=== PATIENT | female | born 1970 | race Caucasian/White ===

== ENCOUNTER 2020-12-30 19:36 | Inpatient (IN) | payer OTHER, SELFPAY ==
[2020-12-30 19:36] VITALS: BP 117/65; PULSE 102; RESP 24; TEMP 36; O2SAT 74; BMI 46.4
[2020-12-30 19:45] VITALS: PULSE 92; RESP 28; O2SAT 83
[2020-12-30 19:50] VITALS: RESP 26; O2SAT 89
[2020-12-30 19:55] VITALS: RESP 24; O2SAT 98
[2020-12-30 20:28] VITALS: O2SAT 94
[2020-12-30 20:39] VITALS: BP 132/79; PULSE 88; RESP 29; O2SAT 95
--- NOTE | 2020-12-30 20:46 | CT_ITS ---
STUDY: CTA CHEST REASON FOR EXAM: Female, 50 years old. hypoxia. Short of breath, cough, Covid positive RADIATION DOSAGE (If Supplied By Facility): CTDIvol = ( 12.65 ) mGy, DLP = ( 460.60 ) mGycm TECHNIQUE: The examination was performed with the intravenous administration of IV 100mL Isovue-370. Post-processing of the angiographic images was performed, with multiplanar reformation and 3D reconstruction. Individualized dose optimization techniques were used for this CT. COMPARISON: Chest x-ray same date FINDINGS: Normal enhancement of the main pulmonary artery and right and left pulmonary arteries. Normal enhancement of the bilateral peripheral pulmonary arteries. There is no demonstrated pulmonary embolism. Normal thoracic aorta and visualized great vessels. There is no demonstrated aortic dissection. Normal heart and pericardium. Normal mediastinum. Normal hilar regions. Normal visualized trachea and bronchi. The lungs are well expanded. Bilateral multifocal parenchymal consolidations are noted, this is consistent with that of a viral pneumonitis, pneumonia. No pleural effusion. Normal pleura. Normal chest wall structures. Normal osseous structures. Cholelithiasis is noted with numerable peripherally calcified gallstones, the largest gallstone seen in the fundus of the gallbladder measuring approximately 2.5 cm. No ductal stone or obstruction identified. Small hiatal hernia noted. CT/CTA Chest W/WO Contrast IMPRESSION: 1. No demonstrate pulmonary embolus. 2. Bilateral pulmonary parenchymal infiltrates consistent with pneumonia in this patient who is Covid positive Electronically Signed: Loretta Potts MD at 22:56 EDT , Service support ,
--- NOTE | 2020-12-30 20:46 | ED.VIS.DYS ---
HPI History of Present Illness Chief Complaint: Shortness of Breath Narrative Narrative: 50-year-old female with no reported medical history presenting with hypoxia. She states she has been sick since December 21. She has cough, body aches, low-grade fever at home. The fever has resolved. She does not have any chest pain. She does feel dyspneic. She was diagnosed with COVID-19 on . Today her thought she looked like she was having difficulty breathing and he went down the street to get a pulse oximeter from family and states it was in the mid 70s, around 76. Patient placed on O2 by EMS. She is mentating clearly. Patient states she did initially have some diarrhea which resolved. She states she has not been vaccinated for COVID-19 because she was unsure which when she wanted to take. PFSH PFSH Medical History Non-smoker Allergy/AdvReac Type Severity Reaction Status Date / Time Penicillins [PCN] Allergy Hives Verified 12/30/20 19:40 Social History Smoking Status: Never smoker ROS ROS ED Constitutional Constitutional ED: Reports chills and fever(s) Eyes Eyes: Denies blurry vision or change in vision ENT ENT ED: Denies rhinorrhea or sore throat Cardiovascular Cardiovascular: Reports chest pain Respiratory/Chest Respiratory/Chest: Reports cough, dyspnea and dyspnea on exertion Gastrointestinal Gastrointestinal: Denies abdominal pain Genitourinary Genitourinary ED: Denies dysuria, hematuria or urinary frequency Musculoskeletal Musculoskeletal: Reports myalgias; Denies arthralgias or neck pain Integumentary Denies abscess or rash Neurologic Neurologic: Denies headache(s) or paresthesias Psychiatric Psychiatric: Denies anxiety or depression EXAM Physical Exam Const Vital Signs: 12/30/20 19:36 12/30/20 19:45 12/30/20 19:50 Temperature 96.8 F L Temperature Source Temporal Pulse Rate 102 H 92 Respiratory Rate 24 H 28 H 26 H Respiratory Effort Respiratory Depth Respiratory Pattern Blood Pressure 117/65 Blood Pressure Mean 82 Pulse Ox 74 83 89 Oxygen Delivery Method Room Air Room Air Nasal Cannula Oxygen Flow Rate (L/min) 6 12/30/20 19:55 12/30/20 20:28 Temperature Temperature Source Pulse Rate Respiratory Rate 24 H Respiratory Effort Normal Respiratory Depth Normal Respiratory Pattern Normal Blood Pressure Blood Pressure Mean Pulse Ox 98 Oxygen Delivery Method Non-Rebreather Nasal Cannula Oxygen Flow Rate (L/min) 15 14 Positive obese General Appearance ED: other Hypoxic but mentating clearly. Nutritional Appearance: obese HEENT Reports dry mucous membranes atraumatic Mouth ED: Yes dry mucous membranes Mouth: dry mucous membranes Eyes PERRL and EOMs intact bilaterally Neck no lymphadenopathy and supple Lymph Lymphatic: other Resp Resp Narrative: Bibasilar crackles Auscultation: diminished lung sounds; Negative for wheezes Cardio regular rhythm Rate: tachycardic GI non-tender and non-distended Palpation: soft Neuro oriented x3 Sensorium / Orientation: alert Psych mental status grossly normal Thought Process: normal thought process Skin Lesions: no lesions Rashes: no rashes MDM MDM MDM Narrative Medical decision making narrative: Patient presenting with hypoxia secondary to COVID-19. She not have any chest pain. She does have dyspnea. Patient states she has no medical history. EKG performed on arrival on my interpretation shows a normal sinus rhythm with right bundle branch block. There is no ST elevation or depression. Patient's lab work shows that she is leukopenic and lymphopenic. Creatinine is 1.40. There is no comparison. Electrolytes are normal. Lactic acid is negative. LFTs are normal. Patient is on 14 L currently. Given her CAESAR I did speak with the hospitalist and she wants 75 cc/h normal saline. Patient was given dexamethasone. Chest x-ray on my interpretation shows bilateral pulmonary infiltrates consistent with COVID-19 on my interpretation. Radiologist does agree. Patient had CTA of the chest which shows similar infiltrates. There are no PEs or dissection. Patient discussed with hospitalist for admission. She is admitted in stable condition. Impression: 1. Hypoxic respiratory failure 2. COVID-19 pneumonia 3. Elevated creatinine Lab Data Attestation: I reviewed the patient's lab results. Labs: Laboratory Results - last 24 hr 12/30/20 12/30/20 12/30/20 20:53 20:53 20:53 WBC 4.5 RBC 5.21 Hgb 11.6 L Hct 38.1 MCV 73.1 L MCH 22.3 L MCHC 30.4 L RDW Std Deviation 41.2 RDW Coeff of Carlos 15.7 H Plt Count 257 MPV 9.8 Immature Gran % (Auto) 0.700 Neut % (Auto) 83.4 H Lymph % (Auto) 9.3 L [place] % (Auto) 6.4 Eos % (Auto) 0.0 Baso % (Auto) 0.2 Absolute Neuts (auto) 3.8 Absolute Lymphs (auto) 0.42 L Nucleated RBC % 0 Differential Comment SCANNED Platelet Estimate ADEQUATE Anisocytosis 1+ Microcytosis 1+ Sodium 136 Potassium 3.8 Chloride 102 Carbon Dioxide 25.0 Anion Gap 9 BUN 25 H Creatinine 1.40 H Estim Creat Clear Calc 38.02 Est GFR (MDRD) Af Amer 51 L Est GFR (MDRD) Non-Af 42 L BUN/Creatinine Ratio 17.9 Glucose 109 H Lactic Acid 1.4 Calcium 8.1 L Total Bilirubin 0.40 AST 52 H ALT 30 Alkaline Phosphatase 68 Total Protein 7.5 Albumin 3.0 L Globulin 4.5 H Albumin/Globulin Ratio 0.7 L Radiography Diagnostic Testing: Radiology Impression Chest CTA 12/30/20 20:46 IMPRESSION: 1. No demonstrate pulmonary embolus. 2. Bilateral pulmonary parenchymal infiltrates consistent with pneumonia in this patient who is Covid positive Electronically Signed: Loretta Potts MD at 22:56 EDT , Service support , Chest X-Ray 12/30/20 22:20 IMPRESSION: Although lung volume is diminished which likely does contribute to some of the increased pulmonary parenchymal opacity seen, there also appear more focal bilateral patchy areas of pulmonary parenchymal infiltration consistent with pneumonia Electronically Signed: Loretta Potts MD at 22:44 EDT , Service support , Discharge Plan Triage Chief Complaint: Shortness of Breath ED Provider: Robin Mao Dx/Rx/DC Orders Primary Care Provider: Care Physician,No Primary
[2020-12-30 21:04] LABS: Absolute Lymphocyte Count 0.42 X10^3/uL (0.83-4.51); Absolute Neutrophil Count 3.8 X10^3/uL (2.0-7.7); Basophil# 0.01 X10^3/uL; Basophil% 0.2 % (0-1); Hematocrit 38.1 % (37-47); Hemoglobin 11.6 g/dL (12.0-15.0); Lymphocyte # 0.42 X10^3/ul (0.83-4.51); Lymphocyte % 9.3 % (19-41); Mean Corp Hgb Conc 30.4 g/dL (32-36); Mean Corpuscular Hgb 22.3 pg (27.0-32.0); Mean Corpuscular Volume 73.1 fL (81-99); Mean Platelet Vol. 9.8 fl (6.2-12.0); Monocyte# 0.29 X10^3/uL; Monocyte% 6.4 % (0-10); NRBC Flagged by Analyzer 0 % (0-5); Neutrophil # 3.79 X10^3/uL (2.7-7.7); Neutrophil % 83.4 % (47-70); POSITIVE DIFFERENTIAL YES; Platelet Count 257 K/mm3 (150-450); RBC Distribution Width CV 15.7 % (11.6-14.6); RBC Distribution Width SD 41.2 fl (35.1-43.9); Red Blood Count 5.21 M/mm3 (4.2-5.4); White Blood Count 4.5 K/mm3 (4.4-11.0)
[2020-12-30 21:07] LABS: Differential Indicated SCAN CRITERIA MET
--- NOTE | 2020-12-30 21:13 | EKG12_ITS ---
Test Reason : DYSRHYTHMIA Blood Pressure : / mmHG Vent. Rate : 097 BPM Atrial Rate : 097 BPM P-R Int : 144 ms QRS Dur : 128 ms QT Int : 374 ms P-R-T Axes : 022 -22 -05 degrees QTc Int : 474 ms Normal sinus rhythm Right bundle branch block Abnormal ECG Confirmed by PHYLLIS YOUNGBLOOD, STAR ([id number]), editor managing newspaper HUGO HOLGUIN ([id number]) on 12/31/2020 11:50:05 AM Referred By: REGAN Confirmed By:STAR FREGUSON MD
[2020-12-30 21:24] LABS: ALB/GLOB Ratio 0.7 RATIO (0.9-2.4); AST(SGOT) 52 U/L (15-37); Alanine Aminotransfer ALT/SGPT 30 U/L (13-56); Alkaline Phosphatase 68 U/L (45-117); Anion Gap 9 (5-15); BUN 25 mg/dL (7-18); BUN/Creat Ratio 17.9 RATIO (10-20); Calcium,Total 8.1 mg/dL (8.5-10.1); Chloride 102 mmol/L (98-107); EST Glomerular Filtration Rate 42 mL/min (>60); Est Glom Filt Rate - Afr Amer 51 mL/min (>60); Estimated Creatinine Clearance 38.02 ml/min; Globulin 4.5 g/dL (2.2-4.2); Glucose 109 mg/dL (74-106); Potassium 3.8 mmol/L (3.5-5.1); Protein, Total 7.5 g/dL (6.4-8.2); Sodium Level 136 mmol/L (136-145)
[2020-12-30 21:31] LABS: Lactic Acid 1.4 mmol/L (0.4-1.9)
[2020-12-30 21:56] LABS: Anisocytosis 1+; Differential Comment SCANNED; Microcytosis 1+; Platelet Estimate ADEQUATE (ADEQ)
--- NOTE | 2020-12-30 22:20 | RAD_ITS ---
STUDY: X-RAY CHEST REASON FOR EXAM: Female, 50 years old. cough short of breath, cough and Covid positive. TECHNIQUE: Single AP portable view of the chest. COMPARISON: None. FINDINGS: Cardiac monitoring leads are present. Although lung volume is diminished which likely does contribute to some of the increased pulmonary parenchymal opacity seen, there also appear more focal bilateral patchy areas of pulmonary parenchymal infiltration consistent with pneumonia. There is no demonstrated pleural abnormality. Normal size heart. Normal mediastinum and poly. Normal visualized pulmonary arteries. Normal visualized aortic arch and descending thoracic aorta. Normal visualized thoracic spine. Normal visualized ribs, clavicles, and shoulders. There is no demonstrated abnormality of the visualized soft tissue structures of the upper abdomen. RAD/Chest 1 View (Portable) IMPRESSION: Although lung volume is diminished which likely does contribute to some of the increased pulmonary parenchymal opacity seen, there also appear more focal bilateral patchy areas of pulmonary parenchymal infiltration consistent with pneumonia Electronically Signed: Loretta Potts MD at 22:44 EDT , Service support ,
--- NOTE | 2020-12-30 23:11 | HP.PCM.HOS_ITS ---
HPI - General General Date of Admission: 12/31/20 HPI Narrative SWATHI LANGSTON, is a 50 F with a PMH as outlined who presents via the ED with a complaint of shortness of breath. Her symptoms started on December 21, with cough, body aches and low grade fever. She was short of breath last night. She was diagnosed wtih covid on . Her thought she was having shortness of breath, so he got a pulse ox which was in the 70s. EMS was called and she was placed on oxygen by the EMS. Patient hadnt yet received the COVID vaccine because she couldnt decide which one she wanted to take. Review of systems was otherwise negative. Virtals were temp of 96.8F, with RI of 102F, RR of 24 and she was saturating at 98% on 14L of oxygen. CBC showed wbc of 4.5, with Hb of 11.6, platelets of 257 and chemistry was significant for Cr of 1.4. CXR shwoed increased pulmonary parenchymal opacity,a dn focal bilateral patchy areas of pulmonary parenchymal infiltration consistent with pneumonia. CTA of the chest showed no PE and showed bilateral pulmonary parenchymal infiltrates consistent with covid pneumonia. She is being admitted to be managed for acute hypoxic respiratory failure due to COVID 19 pneumonia. PFSH Medical History Non-smoker Allergy/AdvReac Type Severity Reaction Status Date / Time Penicillins [PCN] Allergy Hives Verified 12/30/20 19:40 Social History Smoking Status: Never smoker ROS Review of Systems ROS Unobtainable: Denies due to encephalopathy Constitutional Constitutional: Reports chills, fatigue, fever(s), malaise and weakness; Denies anorexia Eyes Eyes: Denies change in eye color or double vision ENT HEENT: Denies dysphagia, hearing loss, nasal congestion, nasal discharge or sore throat Cardiovascular Cardiovascular: Denies chest pain, dyspnea on exertion, edema, orthopnea, palpitations, paroxysmal nocturnal dyspnea or rapid heart rate Respiratory/Chest Respiratory/Chest: Reports cough, dyspnea, shortness of breath at rest and short ness of breath with exertion; Denies productive cough or wheezing Gastrointestinal Gastrointestinal: Reports melena; Denies abdominal pain, diarrhea, dyspepsia, nausea or vomiting Genitourinary Genitourinary: Denies burning urination, dysuria or urinary frequency Musculoskeletal Musculoskeletal: Denies arthralgias Neurologic Neurologic: Denies confusion, dizziness, focal weakness or seizures Psychiatric Psychiatric: Denies anxiety Endocrine Endocrinology: Denies change in body appearance Hematologic/Lymphatic Hematologic/Lymphatic: Denies anemia Vital Signs Vital Signs Vital Signs: 12/30/20 19:36 12/30/20 19:45 12/30/20 19:50 Temperature 96.8 F L Temperature Source Temporal Pulse Rate 102 H 92 Respiratory Rate 24 H 28 H 26 H Respiratory Effort Respiratory Depth Respiratory Pattern Blood Pressure 117/65 Blood Pressure Mean 82 Pulse Ox 74 83 89 Oxygen Delivery Method Room Air Room Air Nasal Cannula Oxygen Flow Rate (L/min) 6 12/30/20 19:55 12/30/20 20:28 Temperature Temperature Source Pulse Rate Respiratory Rate 24 H Respiratory Effort Normal Respiratory Depth Normal Respiratory Pattern Normal Blood Pressure Blood Pressure Mean Pulse Ox 98 Oxygen Delivery Method Non-Rebreather Nasal Cannula Oxygen Flow Rate (L/min) 15 14 Weight Weight: 254 lb Body Mass Index (BMI) 46.4 Physical Exam Const alert, oriented x3 and no apparent distress General Appearance: cooperative HEENT normocephalic, head/scalp atraumatic and hearing grossly normal bilaterally HEENT Narrative: dry mucosal membranes Eyes PERRL, EOMs intact bilaterally and conjunctivae normal Neck no lymphadenopathy Resp Resp Narrative: tachycardic, diminished breath sounds bibasally, no wheezes or crackles. On 15L of oxygen by nasal canula Cardio regular rhythm, S1 normal heart sound, S2 normal heart sound and no murmurs Cardio Narrative: tachycardic GI normal to inspection, nondistended, normoactive bowel sounds, soft to palpation, non-tender and non-distended Extremity normal to inspection, full ROM and no clubbing, cyanosis or edema Peripheral Pulses: Yes pulses 2+ throughout Skin no rashes or lesions noted and no wounds Neuro oriented x3 Sensorium / Orientation: awake and alert Psych affect normal Results Lab / Micro Data Result Diagrams: 12/31/20 06:20 12/30/20 20:53 Labs: Laboratory Results - last 24 hr 12/30/20 20:53: WBC 4.5, RBC 5.21, Hgb 11.6 L, Hct 38.1, MCV 73.1 L, MCH 22.3 L, MCHC 30.4 L, RDW Std Deviation 41.2, RDW Coeff of Carlos 15.7 H, Plt Count 257, MPV 9.8, Immature Gran % (Auto) 0.700, Neut % (Auto) 83.4 H, Lymph % (Auto) 9.3 L, [place] % (Auto) 6.4, Eos % (Auto) 0.0, Baso % (Auto) 0.2, Absolute Neuts (auto) 3.8, Absolute Lymphs (auto) 0.42 L, Nucleated RBC % 0, Differential Comment SCANNED, Platelet Estimate ADEQUATE, Anisocytosis 1+, Microcytosis 1+ 12/30/20 20:53: Sodium 136, Potassium 3.8, Chloride 102, Carbon Dioxide 25.0, Anion Gap 9, BUN 25 H, Creatinine 1.40 H, Estim Creat Clear Calc 38.02, Est GFR (MDRD) Af Amer 51 L, Est GFR (MDRD) Non-Af 42 L, BUN/Creatinine Ratio 17.9, Glucose 109 H, Calcium 8.1 L, Total Bilirubin 0.40, AST 52 H, ALT 30, Alkaline Phosphatase 68, Total Protein 7.5, Albumin 3.0 L, Globulin 4.5 H, Albumin/Globulin Ratio 0.7 L 12/30/20 20:53: Lactic Acid 1.4 Radiology Impression Chest CTA 12/30/20 20:46 IMPRESSION: 1. No demonstrate pulmonary embolus. 2. Bilateral pulmonary parenchymal infiltrates consistent with pneumonia in this patient who is Covid positive Electronically Signed: Loretta Potts MD at 22:56 EDT , Service support , Chest X-Ray 12/30/20 22:20 IMPRESSION: Although lung volume is diminished which likely does contribute to some of the increased pulmonary parenchymal opacity seen, there also appear more focal bilateral patchy areas of pulmonary parenchymal infiltration consistent with pneumonia Electronically Signed: Loretta Potts MD at 22:44 EDT , Service support , Assessment & Plan Assessment/Plan (1) COVID: (2) Sepsis with acute hypoxic respiratory failure: (3) CAESAR (acute kidney injury): PLAN: #Acute hypoxic respiratory failure due to COVID 19 infection * admit to PCU * start on decadrone 6mg daily and remdesivir * check D dimer * titrate oxygen to maintain sats >90% * breathing treatment with bronchodilators * titrate oxygen to maintain sats >90% * consult pulmonology and ID * #COVID 19 pneumonia: as above Code status: full code * Patient counseled extensively about different types of CODE STATUS including full code, DNR CCA and DNR CCA. Patient elects to be full code. Total holt-ks-oard time 17 minutes. Charges/Coding Visit Charges Inpatient E&M: 38001 Init Hosp L3 Multi Select Codes Hospitalists' Procedures Procedures: 39024 Advncd Care Plan 30 Min
[2020-12-31] VITALS (28 sets, daily range): BP systolic 116–152; BP diastolic 66–92; PULSE 67–87; RESP 12–39; TEMP 36.2–37.5; O2SAT 83–100; BMI 45.1
[2020-12-31] MEDS: 0.9% Normal Saline 1,000 ML 75 ML IV (00:13)
[2020-12-31] MEDS: dexAMETHasone 10 MG/ML Vial 6 MG IV ×2 (00:13→10:31)
[2020-12-31] MEDS: 0.9% Saline Lock 10 ML Syringe IV ×2 (03:38→22:18)
[2020-12-31 06:42] LABS: Absolute Lymphocyte Count 0.42 X10^3/uL (0.83-4.51); Absolute Neutrophil Count 2.8 X10^3/uL (2.0-7.7); Hematocrit 34.5 % (37-47); Hemoglobin 10.6 g/dL (12.0-15.0); Lymphocyte # 0.42 X10^3/ul (0.83-4.51); Lymphocyte % 12.5 % (19-41); Mean Corp Hgb Conc 30.7 g/dL (32-36); Mean Corpuscular Hgb 22.6 pg (27.0-32.0); Mean Corpuscular Volume 73.7 fL (81-99); Mean Platelet Vol. 10.1 fl (6.2-12.0); Monocyte# 0.13 X10^3/uL; Monocyte% 3.9 % (0-10); NRBC Flagged by Analyzer 0 % (0-5); POSITIVE DIFFERENTIAL YES; POSITIVE MORPHOLOGY YES; Platelet Count 237 K/mm3 (150-450); RBC Distribution Width CV 15.9 % (11.6-14.6); RBC Distribution Width SD 42.1 fl (35.1-43.9); Red Blood Count 4.68 M/mm3 (4.2-5.4); White Blood Count 3.4 K/mm3 (4.4-11.0)
[2020-12-31 06:45] LABS: Differential Indicated SCAN CRITERIA MET
[2020-12-31 06:53] LABS: International Normalized Ratio 1.2; Prothrombin Time (Protime)PT. 14.2 SECONDS (11.7-14.9)
[2020-12-31 06:56] LABS: D-Dimer Quantitative (DVT/PE) 0.93 FEU/ug/m (0.27-0.49)
[2020-12-31 07:15] LABS: ALB/GLOB Ratio 0.6 RATIO (0.9-2.4); AST(SGOT) 46 U/L (15-37); Alanine Aminotransfer ALT/SGPT 29 U/L (13-56); Albumin, Serum 2.6 g/dL (3.2-5.0); Alkaline Phosphatase 64 U/L (45-117); Anion Gap 8 (5-15); BUN 21 mg/dL (7-18); BUN/Creat Ratio 23.3 RATIO (10-20); Calcium,Total 7.6 mg/dL (8.5-10.1); Chloride 104 mmol/L (98-107); EST Glomerular Filtration Rate 70 mL/min (>60); Est Glom Filt Rate - Afr Amer 85 mL/min (>60); Estimated Creatinine Clearance 59.15 ml/min; Globulin 4.1 g/dL (2.2-4.2); Glucose 144 mg/dL (74-106); Magnesium 2.3 mg/dL (1.6-2.6); Potassium 3.9 mmol/L (3.5-5.1); Protein, Total 6.7 g/dL (6.4-8.2); Sodium Level 136 mmol/L (136-145)
[2020-12-31 07:17] LABS: Alkaline Phosphatase 64 U/L (45-117); CPK Total, Creatine Kinase 70 U/L (26-192); LDH 492 U/L (84-246)
[2020-12-31] MEDS: Ipratropium/Albuterol Sulfate 3 ML AMPUL.NEB INHALATION ×3 (07:20→19:30)
[2020-12-31 07:52] LABS: BNP,B-Type NATRIURETIC PEPTIDE 4.2 pg/mL (0-100)
--- NOTE | 2020-12-31 08:32 | NT.THERAPY_ITS ---
Medical Nutrition Therapy - History Nutrition Services has been consulted to:: Manage nutrient details of diet order Current diet/nutrition support order:: Cardiac - Anthropometric Measurements Height:: 5 ft 2 in Weight:: 112.1 kg Body Mass Index (BMI):: 45.1 - Relevant Labs Relevant Labs:: WBC 3.4 K/mm3 (4.4-11.0) L 12/31/20 06:20 Hgb 10.6 g/dL (12.0-15.0) L 12/31/20 06:20 Hct 34.5 % (37-47) L 12/31/20 06:20 MCV 73.7 fL (81-99) L 12/31/20 06:20 MCH 22.6 pg (27.0-32.0) L 12/31/20 06:20 MCHC 30.7 g/dL (32-36) L 12/31/20 06:20 RDW Coeff of Carlos 15.9 % (11.6-14.6) H 12/31/20 06:20 Neut % (Auto) 83.0 % (47-70) H 12/31/20 06:20 Lymph % (Auto) 12.5 % (19-41) L 12/31/20 06:20 Absolute Lymphs (auto) 0.42 X10^3/uL (0.83-4.51) L 12/31/20 06:20 D-Dimer Quant (PE/DVT) 0.93 FEU/ug/m (0.27-0.49) H* 12/31/20 06:20 BUN 21 mg/dL (7-18) H 12/31/20 06:20 Creatinine 1.40 mg/dL (0.55-1.02) H 12/30/20 20:53 Est GFR (MDRD) Af Amer 51 mL/min (>60) L 12/30/20 20:53 Est GFR (MDRD) Non-Af 42 mL/min (>60) L 12/30/20 20:53 BUN/Creatinine Ratio 23.3 RATIO (10-20) H 12/31/20 06:20 Glucose 144 mg/dL (74-106) H 12/31/20 06:20 Calcium 7.6 mg/dL (8.5-10.1) L 12/31/20 06:20 AST 46 U/L (15-37) H 12/31/20 06:20 Lactate Dehydrogenase 492 U/L (84-246) H 12/31/20 06:20 Albumin 2.6 g/dL (3.2-5.0) L 12/31/20 06:20 Globulin 4.5 g/dL (2.2-4.2) H 12/30/20 20:53 Albumin/Globulin Ratio 0.6 RATIO (0.9-2.4) L 12/31/20 06:20 - Assessment Food and Nutrient Intake: PO intake on PCU to be established. Pt reports no appetite x 1 wk - still has sense of taste and smell. Pt is not interested in oral nutrition supplement at this time. UBW: 116.12 kg - wt loss of 3.6% x 1 wk (sig for malnutrition) - Nutrition Diagnosis: Clinical Problem Acute Disease or Injury Related Malnutrition Clinical Problem - Etiology: related to acute disease (COVID 19) Clinical Problem - Signs/Symptoms: as evidenced by <50% po intake x >5 days and 3.6% wt loss x 1 week prior to admission. Status: Active Problem - Protein Calorie Malnutrition Evidence of Malnutrition Exists: Yes Severe Protein Calorie Malnutrition:: Acute Illness/Injury - Nutrition Intervention Nutrition Prescription: [id number] calories/day (RMR x 1.2-1.3). 112-134 gm protein/day (1-1.2 gm/kg). 3270 ml fluid/day (per ASPEN guidelines) - Food / Nutrient Delivery Interventions Summary of nutrition intervention:: Adjust diet order Nutrition support ordered as / adjusted to:: Will liberalize diet to Regular d/t signs/symptoms of malnutrition. Will readdress need for oral nutrition supplement pending po intake as established and weight trends. Nutrition education provided?: No - MNT Monitoring Active Nutrition Patient: Yes Nutrition Status: Requires Follow Up 3-5 Days - please call RD/LD if ques tions/concerns at [id number]
--- NOTE | 2020-12-31 08:36 | EX.PCM.CONCC ---
Assessment & Plan Assessment/Plan (1) Sepsis with acute hypoxic respiratory failure: (2) COVID: (3) CAESAR (acute kidney injury): PLAN: RECOMMENDATIONS: 1. Continue IV fluids 2. Continue remdesivir and Decadron therapy 3. Transition to Airvo/BiPAP as necessary 4. Confirmed full CODE STATUS 5. Consider BiPAP with sleep IMPRESSIONS: 1. Acute hypoxic respiratory failure secondary to COVID-19 Patient with significant hypoxia, groundglass opacity and positive COVID-19 infection. Patient does not carry any underlying pulmonary diagnoses, but has not had an investigation either. Patient would be within 10 days of presentation, so remdesivir and Decadron would be indicated. Clinical suspicion the patient will need to be transitioned to Airvo to maintain saturations while awake. High clinical suspicion for undiagnosed obstructive sleep apnea, so BiPAP may be necessary. Continue to monitor closely, but patient is willing to be intubated if necessary. Cannot exclude the necessity of moving patient to the ICU for closer monitoring as patient may worsen over the next 3 to 4 days. 2. Acute kidney injury Resolved. Discontinue IV fluids as this can lead to worsening of hypoxic respiratory failure. Continue to monitor with daily labs. 3. Morbid obesity/anemia Complicates care, management, recovery and prognosis. Monitor for clinical signs of bleeding. HPI Consult Data Date of Consult: 12/31/20 HPI Narrative HPI Narrative: SWATHI LANGSTON is a 50 F, with no significant past medical history, who presents to [facility] on 12/30/2020 secondary to hypoxia. Patient reportedly started to have symptoms of shortness of breath, cough and body aches on December 21. The fever has subsequently resolved and patient is not reporting any chest pain. Patient did report increased shortness of breath on exertion was diagnosed with COVID-19 on . Patient's reportedly goes to several plants and she believes he is the one that brought at home. Patient's thought she was not looking well and got a pulse oximeter from a family member and was noted to be around 76%. The patient has not required supplemental oxygen previously. EMS was called and the patient was transferred to the ER for further evaluation. Patient has not received vaccination for COVID-19 secondary to concerns on the appropriate brand. On presentation to the ER, patient was afebrile, but tachycardic at 102 bpm. Patient was noted to be 74% on room air and was only breathing 24 times per minute. Patient eventually was placed on 15 L nasal cannula to maintain saturations. Laboratory work-up was significant for lymphopenia at 4.5, anemia at 11.6 and a creatinine of 1.4. Lactate was within normal limits and LFTs were unremarkable. Chest x-ray and CT scan were personally reviewed and shows bilateral patchy groundglass opacities without PE. Patient was given Decadron and Remdesivir. Patient was also placed on IV fluids secondary to elevated creatinine and admitted to the floor for further evaluation. Patient reports that she is subjectively slightly improved compared to presentation. Patient has developed a significant paroxysmal, nonproductive cough. This is not associated with chest pain. Patient states this is worse with using the incentive spirometer. Patient does not report any significant medical history. Patient states that she is never required an inhaler or supplemental oxygen. Patient has never had pulmonary function test or seen a applied psychology teacher previously. Patient is obese and does report snoring with nonrestful sleep. Patient has never formally been diagnosed with obstructive sleep apnea. Review of systems otherwise negative from a constitutional, HEENT, respiratory, cardiovascular, GI, genitourinary, musculoskeletal, skin, neurologic, psychiatric and hematologic system unless stated above. PFSH Medical History Non-smoker Allergy/AdvReac Type Severity Reaction Status Date / Time Penicillins [PCN] Allergy Hives Verified 12/30/20 19:40 Social History Smoking Status: Never smoker ROS ROS Narrative See HPI Physical Exam Const alert, oriented x3 and no apparent distress General Appearance: cooperative and well developed Nutritional Appearance: morbidly obese HEENT normocephalic, head/scalp atraumatic and moist oral mucous membranes Eyes PERRL and EOMs intact bilaterally Neck full ROM and no lymphadenopathy Chest inspection of chest normal Resp Effort and Inspection: Negative for able to speak in complete sentences, stridor, uses accessory muscles, tracheal deviation or tripod positioning Auscultation: diminished lung sounds; Negative for rales, rhonchi or wheezes Percussion: Negative for dullness Cardio regular rate, regular rhythm, S1 normal heart sound, S2 normal heart sound, no murmurs, no rub and no gallops GI normal to inspection, nondistended, normoactive bowel sounds no CVA tenderness Extremity no clubbing, cyanosis or edema Skin no rashes or lesions noted Neuro oriented x3, CN's II-XII intact bilaterally, moves all extremities and no focal motor deficits Psych cooperative and affect normal Lab / Micro Data Result Diagrams: 12/31/20 06:20 12/31/20 06:20 Labs: Laboratory Results - last 24 hr 12/30/20 20:53: WBC 4.5, RBC 5.21, Hgb 11.6 L, Hct 38.1, MCV 73.1 L, MCH 22.3 L, MCHC 30.4 L, RDW Std Deviation 41.2, RDW Coeff of Carlos 15.7 H, Plt Count 257, MPV 9.8, Immature Gran % (Auto) 0.700, Neut % (Auto) 83.4 H, Lymph % (Auto) 9.3 L, Sac % (Auto) 6.4, Eos % (Auto) 0.0, Baso % (Auto) 0.2, Absolute Neuts (auto) 3.8, Absolute Lymphs (auto) 0.42 L, Nucleated RBC % 0, Differential Comment SCANNED, Platelet Estimate ADEQUATE, Anisocytosis 1+, Microcytosis 1+ 12/30/20 20:53: Sodium 136, Potassium 3.8, Chloride 102, Carbon Dioxide 25.0, Anion Gap 9, BUN 25 H, Creatinine 1.40 H, Estim Creat Clear Calc 38.02, Est GFR (MDRD) Af Amer 51 L, Est GFR (MDRD) Non-Af 42 L, BUN/Creatinine Ratio 17.9, Glucose 109 H, Calcium 8.1 L, Total Bilirubin 0.40, AST 52 H, ALT 30, Alkaline Phosphatase 68, Total Protein 7.5, Albumin 3.0 L, Globulin 4.5 H, Albumin/Globulin Ratio 0.7 L 12/30/20 20:53: Lactic Acid 1.4 12/31/20 06:20: PT 14.2, INR 1.2, D-Dimer Quant (PE/DVT) 0.93 H* 12/31/20 06:20: Alkaline Phosphatase 64, Lactate Dehydrogenase 492 H, Total Creatine Kinase 70 12/31/20 06:20: B-Natriuretic Peptide 4.2 12/31/20 06:20: WBC 3.4 L, RBC 4.68, Hgb 10.6 L, Hct 34.5 L, MCV 73.7 L, MCH 22.6 L, MCHC 30.7 L, RDW Std Deviation 42.1, RDW Coeff of Carlos 15.9 H, Plt Count 237, MPV 10.1, Immature Gran % (Auto) 0.600, Neut % (Auto) 83.0 H, Lymph % (Auto) 12.5 L, Sac % (Auto) 3.9, Eos % (Auto) 0.0, Baso % (Auto) 0.0, Absolute Neuts (auto) 2.8, Absolute Lymphs (auto) 0.42 L, Nucleated RBC % 0, Diff Path Review October12/31/20 06:20: Sodium 136, Potassium 3.9, Chloride 104, Carbon Dioxide 24.0, Anion Gap 8, BUN 21 H, Creatinine 0.90, Estim Creat Clear Calc 59.15, Est GFR (MDRD) Af Amer 85, Est GFR (MDRD) Non-Af 70, BUN/Creatinine Ratio 23.3 H, Glucose 144 H, Calcium 7.6 L, Magnesium 2.3, Total Bilirubin 0.30, AST 46 H, ALT 29, Alkaline Phosphatase 64, Total Protein 6.7, Albumin 2.6 L, Globulin 4.1, Albumin/Globulin Ratio 0.6 L Radiology Impression Chest CTA 12/30/20 20:46 IMPRESSION: 1. No demonstrate pulmonary embolus. 2. Bilateral pulmonary parenchymal infiltrates consistent with pneumonia in this patient who is Covid positive Electronically Signed: Loretta Potts MD at 22:56 EDT , Service support , Chest X-Ray 12/30/20 22:20 IMPRESSION: Although lung volume is diminished which likely does contribute to some of the increased pulmonary parenchymal opacity seen, there also appear more focal bilateral patchy areas of pulmonary parenchymal infiltration consistent with pneumonia Electronically Signed: Loretta Potts MD at 22:44 EDT , Service support , Charges/Coding Visit Charges Inpatient E&M: 79844 Init Hosp L3
[2020-12-31] MEDS: Famotidine 20 MG Tablet PO ×2 (10:30→22:17)
[2020-12-31] MEDS: Enoxaparin 40 MG/0.4 ML Syringe SC ×2 (10:30→22:16)
--- NOTE | 2020-12-31 12:04 | PCM.PN.HOSP ---
Subjective Subjective No issues overnight, had to be transitioned to air Vo this morning to maintain O2 sats Objective Data Objective Data Vital Signs: Vital Signs Temp Pulse Resp BP Pulse Ox 97.5 F L 83 20 H 116/72 98 12/31/20 10:36 12/31/20 10:36 12/31/20 10:36 12/31/20 10:36 12/31/20 10:36 Oxygen Flow Rate (L/min) 55 Oxygen Delivery Method Airvo Weight: 247 lb 2.211 oz Body Mass Index (BMI) 45.1 Intake & Output: Intake and Output for Last 24 Hours 12/30/20 12/31/20 01/01/21 03:59 03:59 03:59 Intake Total 1010 / 1010 Balance 1010 / 1010 Lab / Micro Data Result Diagrams: 12/31/20 06:20 12/31/20 06:20 Labs: Laboratory Results - last 24 hr 12/30/20 20:53: WBC 4.5, RBC 5.21, Hgb 11.6 L, Hct 38.1, MCV 73.1 L, MCH 22.3 L, MCHC 30.4 L, RDW Std Deviation 41.2, RDW Coeff of Carlos 15.7 H, Plt Count 257, MPV 9.8, Immature Gran % (Auto) 0.700, Neut % (Auto) 83.4 H, Lymph % (Auto) 9.3 L, Tyler % (Auto) 6.4, Eos % (Auto) 0.0, Baso % (Auto) 0.2, Absolute Neuts (auto) 3.8, Absolute Lymphs (auto) 0.42 L, Nucleated RBC % 0, Differential Comment SCANNED, Platelet Estimate ADEQUATE, Anisocytosis 1+, Microcytosis 1+ 12/30/20 20:53: Sodium 136, Potassium 3.8, Chloride 102, Carbon Dioxide 25.0, Anion Gap 9, BUN 25 H, Creatinine 1.40 H, Estim Creat Clear Calc 38.02, Est GFR (MDRD) Af Amer 51 L, Est GFR (MDRD) Non-Af 42 L, BUN/Creatinine Ratio 17.9, Glucose 109 H, Calcium 8.1 L, Total Bilirubin 0.40, AST 52 H, ALT 30, Alkaline Phosphatase 68, Total Protein 7.5, Albumin 3.0 L, Globulin 4.5 H, Albumin/Globulin Ratio 0.7 L 12/30/20 20:53: Lactic Acid 1.4 12/31/20 06:20: PT 14.2, INR 1.2, D-Dimer Quant (PE/DVT) 0.93 H* 12/31/20 06:20: Alkaline Phosphatase 64, Lactate Dehydrogenase 492 H, Total Creatine Kinase 70 12/31/20 06:20: B-Natriuretic Peptide 4.2 12/31/20 06:20: WBC 3.4 L, RBC 4.68, Hgb 10.6 L, Hct 34.5 L, MCV 73.7 L, MCH 22.6 L, MCHC 30.7 L, RDW Std Deviation 42.1, RDW Coeff of Carlos 15.9 H, Plt Count 237, MPV 10.1, Immature Gran % (Auto) 0.600, Neut % (Auto) 83.0 H, Lymph % (Auto) 12.5 L, Tyler % (Auto) 3.9, Eos % (Auto) 0.0, Baso % (Auto) 0.0, Absolute Neuts (auto) 2.8, Absolute Lymphs (auto) 0.42 L, Nucleated RBC % 0, Diff Path Review October12/31/20 06:20: Sodium 136, Potassium 3.9, Chloride 104, Carbon Dioxide 24.0, Anion Gap 8, BUN 21 H, Creatinine 0.90, Estim Creat Clear Calc 59.15, Est GFR (MDRD) Af Amer 85, Est GFR (MDRD) Non-Af 70, BUN/Creatinine Ratio 23.3 H, Glucose 144 H, Calcium 7.6 L, Magnesium 2.3, Total Bilirubin 0.30, AST 46 H, ALT 29, Alkaline Phosphatase 64, Total Protein 6.7, Albumin 2.6 L, Globulin 4.1, Albumin/Globulin Ratio 0.6 L Micro: Microbiology 12/31/20 08:45 Interface Orders Legionella Antigen - Final 12/31/20 08:45 Interface Orders Streptococcus pneumoniae Antigen (M - Final Streptococcus pneumonia Ag Radiography Diagnostic Testing: Radiology Impression Chest CTA 12/30/20 20:46 IMPRESSION: 1. No demonstrate pulmonary embolus. 2. Bilateral pulmonary parenchymal infiltrates consistent with pneumonia in this patient who is Covid positive Electronically Signed: Loretta Potts MD at 22:56 EDT , Service support , Chest X-Ray 12/30/20 22:20 IMPRESSION: Although lung volume is diminished which likely does contribute to some of the increased pulmonary parenchymal opacity seen, there also appear more focal bilateral patchy areas of pulmonary parenchymal infiltration consistent with pneumonia Electronically Signed: Loretta Potts MD at 22:44 EDT , Service support , Physical Exam Const alert, oriented x3 and no apparent distress General Appearance: cooperative HEENT normocephalic Mouth: dry mucous membranes Eyes PERRL, EOMs intact bilaterally and conjunctivae normal Neck supple and no JVD Resp normal respiratory effort, no retractions, no use of accessory muscles and clear to auscultation bilaterally Auscultation: diminished lung sounds; Negative for crackles, rales, rhonchi or wheezes Cardio regular rate, regular rhythm, S1 normal heart sound, S2 normal heart sound and no murmurs GI soft to palpation, non-tender and non-distended; Negative for hepatosplenomegaly Extremity no clubbing, cyanosis or edema Skin no rashes or lesions noted Neuro no focal motor deficits and no sensory deficits noted Psych affect normal Appearance: appropriate Assessment & Plan Assessment/Plan (1) COVID: (2) Sepsis with acute hypoxic respiratory failure: (3) CAESAR (acute kidney injury): PLAN: 1. Acute hypoxic respiratory failure secondary to COVID-19 pneumonia -D-dimer was slightly elevated however CTA of the chest was negative for PE -Appreciate pulmonology assistance -Continue with remdesivir and Decadron -Continue with air Vo, will likely need BiPAP overnight and she is amenable to intubation if necessary -If we do need to transition to BiPAP will likely transfer to ICU for care DVT: Lovenox Charges/Coding Visit Charges Inpatient E&M: 82149 Subs Hosp L2
[2020-12-31] MEDS: levoFLOXacin IV 750 MG/150 ML BAG 100 MG IV (12:28)
[2020-12-31 13:12] LABS: Pathologist Review Reviewed
--- NOTE | 2020-12-31 13:24 | PCM.CONS.GEN ---
Assessment & Plan Assessment/Plan (1) COVID: PLAN: Sx started 12/21/20. Unvaccinated. Quarantine for 20 days, completes 01/10/21. On dex, will change to po. On remdesivir, will order daily cmp and cbc. D-dimer mildly elevated, CT neg for PE, will increase lovenox to 40mg bid. Strep UAg (+), on levaquin. Encouraged her to get covid shot once she is out of iso. also with covid, doing ok. Will follow, thank you (2) Sepsis with acute hypoxic respiratory failure: (3) CAESAR (acute kidney injury): HPI Consult Data Date of Consult: 12/31/20 HPI Narrative HPI Narrative: SWATHI LANGSTON, is a 50 F who presented 12/30 with sx starting 12/21 with fever, chills, fatigue, aches, cough. Caught covid from her , tested (+) as outpt. Mild diarrhea. No change in taste or smell. Had sats in mid 70s, went to ED, admitted, started on dex, remdesivir, levaquin. No sputum. Has not gotten covid shot. Full ROS performed and neg except as noted above. Feeling better today. PFSH Medical History Non-smoker Allergy/AdvReac Type Severity Reaction Status Date / Time Penicillins [PCN] Allergy Hives Verified 12/30/20 19:40 Social History Smoking Status: Never smoker Physical Exam Const alert, oriented x3 and no apparent distress General Appearance: cooperative HEENT normocephalic and head/scalp atraumatic Eyes PERRL and EOMs intact bilaterally Neck supple and No nodes Resp clear to auscultation bilaterally Auscultation: diminished lung sounds Cardio regular rate and regular rhythm GI normal to inspection, nondistended, normoactive bowel sounds Extremity no clubbing, cyanosis or edema Skin no rashes or lesions noted Neuro CN's II-XII intact bilaterally Lab / Micro Data Result Diagrams: 12/31/20 06:20 12/31/20 06:20 Labs: Laboratory Results - last 24 hr 12/30/20 20:53: WBC 4.5, RBC 5.21, Hgb 11.6 L, Hct 38.1, MCV 73.1 L, MCH 22.3 L, MCHC 30.4 L, RDW Std Deviation 41.2, RDW Coeff of Carlos 15.7 H, Plt Count 257, MPV 9.8, Immature Gran % (Auto) 0.700, Neut % (Auto) 83.4 H, Lymph % (Auto) 9.3 L, Hopkins % (Auto) 6.4, Eos % (Auto) 0.0, Baso % (Auto) 0.2, Absolute Neuts (auto) 3.8, Absolute Lymphs (auto) 0.42 L, Nucleated RBC % 0, Differential Comment SCANNED, Platelet Estimate ADEQUATE, Anisocytosis 1+, Microcytosis 1+ 12/30/20 20:53: Sodium 136, Potassium 3.8, Chloride 102, Carbon Dioxide 25.0, Anion Gap 9, BUN 25 H, Creatinine 1.40 H, Estim Creat Clear Calc 38.02, Est GFR (MDRD) Af Amer 51 L, Est GFR (MDRD) Non-Af 42 L, BUN/Creatinine Ratio 17.9, Glucose 109 H, Calcium 8.1 L, Total Bilirubin 0.40, AST 52 H, ALT 30, Alkaline Phosphatase 68, Total Protein 7.5, Albumin 3.0 L, Globulin 4.5 H, Albumin/Globulin Ratio 0.7 L 12/30/20 20:53: Lactic Acid 1.4 12/31/20 06:20: PT 14.2, INR 1.2, D-Dimer Quant (PE/DVT) 0.93 H* 12/31/20 06:20: Alkaline Phosphatase 64, Lactate Dehydrogenase 492 H, Total Creatine Kinase 70 12/31/20 06:20: B-Natriuretic Peptide 4.2 12/31/20 06:20: WBC 3.4 L, RBC 4.68, Hgb 10.6 L, Hct 34.5 L, MCV 73.7 L, MCH 22.6 L, MCHC 30.7 L, RDW Std Deviation 42.1, RDW Coeff of Carlos 15.9 H, Plt Count 237, MPV 10.1, Immature Gran % (Auto) 0.600, Neut % (Auto) 83.0 H, Lymph % (Auto) 12.5 L, Hopkins % (Auto) 3.9, Eos % (Auto) 0.0, Baso % (Auto) 0.0, Absolute Neuts (auto) 2.8, Absolute Lymphs (auto) 0.42 L, Nucleated RBC % 0, Diff Path Review Reviewed 12/31/20 06:20: Sodium 136, Potassium 3.9, Chloride 104, Carbon Dioxide 24.0, Anion Gap 8, BUN 21 H, Creatinine 0.90, Estim Creat Clear Calc 59.15, Est GFR (MDRD) Af Amer 85, Est GFR (MDRD) Non-Af 70, BUN/Creatinine Ratio 23.3 H, Glucose 144 H, Calcium 7.6 L, Magnesium 2.3, Total Bilirubin 0.30, AST 46 H, ALT 29, Alkaline Phosphatase 64, Total Protein 6.7, Albumin 2.6 L, Globulin 4.1, Albumin/Globulin Ratio 0.6 L Micro: Microbiology 12/31/20 08:45 Interface Orders Legionella Antigen - Final 12/31/20 08:45 Interface Orders Streptococcus pneumoniae Antigen (M - Final Streptococcus pneumonia Ag Radiology Impression Chest CTA 12/30/20 20:46 IMPRESSION: 1. No demonstrate pulmonary embolus. 2. Bilateral pulmonary parenchymal infiltrates consistent with pneumonia in this patient who is Covid positive Electronically Signed: Loretta Potts MD at 22:56 EDT , Service support , Chest X-Ray 12/30/20 22:20 IMPRESSION: Although lung volume is diminished which likely does contribute to some of the increased pulmonary parenchymal opacity seen, there also appear more focal bilateral patchy areas of pulmonary parenchymal infiltration consistent with pneumonia Electronically Signed: Loretta Potts MD at 22:44 EDT , Service support ,
[2020-12-31] MEDS: Acetaminophen 325 MG Tablet 650 MG PO (22:29)
[2021-01-01] VITALS (24 sets, daily range): BP systolic 126–169; BP diastolic 84–99; PULSE 59–87; RESP 12–34; TEMP 35.6–37.3; O2SAT 84–100
[2021-01-01] MEDS: Ipratropium/Albuterol Sulfate 3 ML AMPUL.NEB INHALATION ×4 (00:06→19:47)
[2021-01-01 06:48] LABS: Hematocrit 35.5 % (37-47); Hemoglobin 10.7 g/dL (12.0-15.0); Mean Corp Hgb Conc 30.1 g/dL (32-36); Mean Corpuscular Hgb 22.2 pg (27.0-32.0); Mean Corpuscular Volume 73.8 fL (81-99); Mean Platelet Vol. 10.3 fl (6.2-12.0); Platelet Count 264 K/mm3 (150-450); RBC Distribution Width CV 15.7 % (11.6-14.6); RBC Distribution Width SD 41.7 fl (35.1-43.9); Red Blood Count 4.81 M/mm3 (4.2-5.4); White Blood Count 4.6 K/mm3 (4.4-11.0)
[2021-01-01 07:15] LABS: ALB/GLOB Ratio 0.6 RATIO (0.9-2.4); AST(SGOT) 40 U/L (15-37); Alanine Aminotransfer ALT/SGPT 34 U/L (13-56); Albumin, Serum 2.6 g/dL (3.2-5.0); Alkaline Phosphatase 61 U/L (45-117); Anion Gap 11 (5-15); BUN 21 mg/dL (7-18); BUN/Creat Ratio 28.6 RATIO (10-20); Calcium,Total 8.1 mg/dL (8.5-10.1); Chloride 105 mmol/L (98-107); Creatinine, Serum 0.73 mg/dL (0.55-1.02); EST Glomerular Filtration Rate 89 mL/min (>60); Est Glom Filt Rate - Afr Amer 108 mL/min (>60); Estimated Creatinine Clearance 72.92 ml/min; Globulin 4.1 g/dL (2.2-4.2); Glucose 141 mg/dL (74-106); Potassium 3.8 mmol/L (3.5-5.1); Protein, Total 6.7 g/dL (6.4-8.2); Sodium Level 139 mmol/L (136-145)
--- NOTE | 2021-01-01 08:59 | PN.CC_ITS ---
Assessment & Plan Assessment/Plan (1) Sepsis with acute hypoxic respiratory failure: (2) COVID: (3) CAESAR (acute kidney injury): PLAN: RECOMMENDATIONS: 1. Avoid IV fluids if possible 2. Continue remdesivir and Decadron therapy 3. Airvo/BiPAP as indicated 4. Confirmed full CODE STATUS 5. Possibly challenge with diuretics tomorrow IMPRESSIONS: 1. Acute hypoxic respiratory failure secondary to COVID-19 Patient with significant hypoxia, groundglass opacity and positive COVID- 19 infection. Patient does not carry any underlying pulmonary diagnoses, but has not had an investigation either. Patient would be within 10 days of presentation, so remdesivir and Decadron would be indicated. Continue Airvo while awake, but may need BiPAP with sleeping. High clinical suspicion for undiagnosed obstructive sleep apnea, so BiPAP may be necessary. Continue to monitor closely, but patient is willing to be intubated if necessary. Cannot exclude the necessity of moving patient to the ICU for closer monitoring as patient may worsen over the next 3 to 4 days. No indication for discontinuation of remdesivir. Continue to follow blood sugars closely given Decadron therapy 2. Acute kidney injury Resolved. Discontinue IV fluids as this can lead to worsening of hypoxic respiratory failure. Continue to monitor with daily labs. 3. Morbid obesity/anemia Complicates care, management, recovery and prognosis. Monitor for clinical signs of bleeding. We will need to watch patient closely for hyperglycemia Subjective Subjective Patient did well overnight. No acute issues were reported. Patient was on BiPAP overnight to facilitate sleep, but is currently on Airvo and states that she feels subjectively improved compared to yesterday. Patient states her cough is improved compared to yesterday. Objective Data Objective Data Vital Signs: Vital Signs Temp Pulse Resp BP Pulse Ox 36.2 C L 69 28 H 134/91 H 95 01/01/21 05:00 01/01/21 07:05 01/01/21 07:05 01/01/21 05:00 01/01/21 07:01 Oxygen Flow Rate (L/min) 60 Oxygen Delivery Method Airvo Weight: 112.1 kg Body Mass Index (BMI) 45.1 Intake & Output: Intake and Output for Last 24 Hours 12/30/20 12/31/20 01/01/21 23:59 23:59 23:59 Intake Total 1160 / 1360 690 / 690 Output Total 400 / 520 270 / 270 Balance 760 / 840 420 / 420 Lab / Micro Data Result Diagrams: 01/01/21 06:25 01/01/21 06:25 Labs: Laboratory Results - last 24 hr 12/31/20 06:20: Diff Path Review Reviewed 01/01/21 06:25: WBC 4.6, RBC 4.81, Hgb 10.7 L, Hct 35.5 L, MCV 73.8 L, MCH 22.2 L, MCHC 30.1 L, RDW Std Deviation 41.7, RDW Coeff of Carlos 15.7 H, Plt Count 264, MPV 10.3 01/01/21 06:25: Sodium 139, Potassium 3.8, Chloride 105, Carbon Dioxide 23.0, Anion Gap 11, BUN 21 H, Creatinine 0.73, Estim Creat Clear Calc 72.92, Est GFR (MDRD) Af Amer 108, Est GFR (MDRD) Non-Af 89, BUN/Creatinine Ratio 28.6 H, Glucose 141 H, Calcium 8.1 L, Total Bilirubin 0.20, AST 40 H, ALT 34, Alkaline Phosphatase 61, Total Protein 6.7, Albumin 2.6 L, Globulin 4.1, Albumin/Globulin Ratio 0.6 L Micro: Microbiology 12/31/20 08:45 Interface Orders Legionella Antigen - Final 12/31/20 08:45 Interface Orders Streptococcus pneumoniae Antigen (M - Final Streptococcus pneumonia Ag Physical Exam Const alert, oriented x3 and no apparent distress General Appearance: cooperative and well developed Nutritional Appearance: morbidly obese HEENT normocephalic, head/scalp atraumatic and moist oral mucous membranes Eyes PERRL and EOMs intact bilaterally Neck full ROM and no lymphadenopathy Chest inspection of chest normal Resp Effort and Inspection: Negative for able to speak in complete sentences, stridor, uses accessory muscles, tracheal deviation or tripod positioning Auscultation: diminished lung sounds; Negative for rales, rhonchi or wheezes Percussion: Negative for dullness Cardio regular rate, regular rhythm, S1 normal heart sound, S2 normal heart sound, no murmurs, no rub and no gallops GI normal to inspection, nondistended, normoactive bowel sounds no CVA tenderness Extremity no clubbing, cyanosis or edema Skin no rashes or lesions noted Neuro oriented x3, CN's II-XII intact bilaterally, moves all extremities and no focal motor deficits Psych cooperative and affect normal Charges/Coding Visit Charges Inpatient E&M: 09994 Subs Hosp L3
[2021-01-01] MEDS: dexAMETHasone 4 MG Tablet 6 MG PO (09:34)
[2021-01-01] MEDS: Famotidine 20 MG Tablet PO ×2 (09:34→22:33)
[2021-01-01] MEDS: levoFLOXacin IV 750 MG/150 ML BAG 100 MG IV (09:34)
[2021-01-01] MEDS: Enoxaparin 40 MG/0.4 ML Syringe SC ×2 (09:34→22:33)
--- NOTE | 2021-01-01 12:45 | CASEMGMT ---
Addendum entered by Liss Cody 01/01/21 13:51: Nathaniel Shelton, confidential secretary, she called Dr Mustafa's office and they confirmed pt is still active w/them. D/C F/U appt was made for January 11. BENITO BORREGO placed call to pt's room and she was notified of same. Original Note: RN CM [employer]OP FARMER CM to room to meet with patient for initial transition planning/care coordination assessment. RN CM introduced self and role at [facility]. Pt voices understanding and consents to assessment at this time. Pt resting in bed in no distress at this time. Airvo in place. Pt is A/O at this time and answers all questions appropriately. Care providers, pharmacy, and demographics verified/updated at this time. PCP: Pt states she used to see a doctor @ [facility] that began w/a V. Asked her if it was Dr Mustafa and she thinks that's who it was. She states she does not f/u with him regularly and that it has been at least a year since she has seen him. BENITO BORREGO asked her if this is who she would want to f'/u with @ discharge, if possible and she states it is. Specialists: none Preferred Pharmacy: [facility] Insurance: [facility] Prescription Benefit: Yes Living Will/HPOA: States does not have LW or HCPOA . Pt made aware that she can contact SW as an out-pt and make appt in the future if she decides she would like to talk with someone about this or would like to utilize [facility] social work for advanced directive completion, once she is out of COVID precautions. Given [employer] card with information and contact number. Pt expresses understanding. LNOK: , Peña Living Arrangements: Lives in 2-story home w/4 steps to enter w/her and 2 children (both under age 18). Independent w/ADL's and IADL's prior to admission Transportation: Pt states drives self and states no transportation concerns at this time. also drives. DME: Denies using any DME. Pt may need oxygen at discharge. Pt provided w/list of DME providers consistent with the patient's preferred geographic region, medical needs, and insurance network. The pt's preferred provider is [employer]. She denies need for other DME. . HHC/SNF: No history of either. No needs identified. Pt denies need for HHC or OP therapy. Pt wishes to return home and states has no concerns with going home at time of discharge. CM to follow for home oxygen needs and any further discharge planning/needs. Pt voices no further concerns/needs at this time. Advised pt to ask for CM if any further questions/concerns/needs arise. Voices understanding. PLAN: Home w/spousal support and discharge plans in place. Pt may need Home O2 @ discharge. CM to follow.cuco WHITEN RN CM
[2021-01-01] MEDS: Furosemide 40 MG/4 ML Vial IV (13:13)
--- NOTE | 2021-01-01 14:02 | PN.HOSP_ITS ---
Subjective Subjective Going in between air Vo and BiPAP both while asleep and awake. She remains tachypneic Objective Data Objective Data Vital Signs: Vital Signs Temp Pulse Resp BP Pulse Ox 97.0 F L 74 34 H 133/87 H 89 01/01/21 09:27 01/01/21 12:30 01/01/21 12:30 01/01/21 09:27 01/01/21 12:30 Oxygen Flow Rate (L/min) 60 Oxygen Delivery Method Bi-pap Weight: 247 lb 2.211 oz Body Mass Index (BMI) 45.1 Intake & Output: Intake and Output for Last 24 Hours 12/31/20 01/01/21 01/02/21 03:59 03:59 03:59 Intake Total 1610 / 1610 630 / 630 Output Total 520 / 520 250 / 250 Balance 1090 / 1090 380 / 380 Lab / Micro Data Result Diagrams: 01/01/21 06:25 01/01/21 06:25 Labs: Laboratory Results - last 24 hr 01/01/21 06:25: WBC 4.6, RBC 4.81, Hgb 10.7 L, Hct 35.5 L, MCV 73.8 L, MCH 22.2 L, MCHC 30.1 L, RDW Std Deviation 41.7, RDW Coeff of Carlos 15.7 H, Plt Count 264, MPV 10.3 01/01/21 06:25: Sodium 139, Potassium 3.8, Chloride 105, Carbon Dioxide 23.0, Anion Gap 11, BUN 21 H, Creatinine 0.73, Estim Creat Clear Calc 72.92, Est GFR ( MDRD) Af Amer 108, Est GFR (MDRD) Non-Af 89, BUN/Creatinine Ratio 28.6 H, Glucose 141 H, Calcium 8.1 L, Total Bilirubin 0.20, AST 40 H, ALT 34, Alkaline Phosphatase 61, Total Protein 6.7, Albumin 2.6 L, Globulin 4.1, Albumin/Globulin Ratio 0.6 L Micro: Microbiology 12/31/20 08:45 Interface Orders Legionella Antigen - Final 12/31/20 08:45 Interface Orders Streptococcus pneumoniae Antigen (M - Final Streptococcus pneumonia Ag Physical Exam Const alert, oriented x3 and no apparent distress General Appearance: cooperative HEENT normocephalic Eyes PERRL, EOMs intact bilaterally and conjunctivae normal Neck supple and no JVD Resp normal respiratory effort, no retractions, no use of accessory muscles and clear to auscultation bilaterally Auscultation: diminished lung sounds; Negative for crackles, rales, rhonchi or wheezes Cardio regular rate, regular rhythm, S1 normal heart sound, S2 normal heart sound and no murmurs GI soft to palpation, non-tender and non-distended; Negative for hepatosplenomegaly Extremity no clubbing, cyanosis or edema Skin no rashes or lesions noted and no wounds Neuro no focal motor deficits and no sensory deficits noted Psych affect normal Appearance: appropriate Assessment & Plan Assessment/Plan (1) COVID: (2) Sepsis with acute hypoxic respiratory failure: (3) CAESAR (acute kidney injury): PLAN: 1. Acute hypoxic respiratory failure secondary to COVID-19 pneumonia -D-dimer was slightly elevated however CTA of the chest was negative for PE -Appreciate pulmonology assistance -Continue with remdesivir and Decadron -Continue with air Vo and intermittent BiPAP whenever she is sleeping. She is doing her incentive spirometry as instructed -She has not been needing BiPAP while awake. 2. Morbid obesity complicates care likely a component of sleep apnea DVT: Lovenox Charges/Coding Visit Charges Inpatient E&M: 67009 Subs Hosp L2
[2021-01-01] MEDS: Acetaminophen 325 MG Tablet 650 MG PO (17:24)
[2021-01-01] MEDS: 0.9% Saline Lock 10 ML Syringe IV (22:36)
[2021-01-02] VITALS (19 sets, daily range): BP systolic 128–147; BP diastolic 85–94; PULSE 53–91; RESP 12–31; TEMP 36.1–37; O2SAT 76–100
[2021-01-02] MEDS: Ipratropium/Albuterol Sulfate 3 ML AMPUL.NEB INHALATION ×4 (01:43→19:52)
[2021-01-02] MEDS: Acetaminophen 325 MG Tablet 650 MG PO (03:11)
[2021-01-02 06:37] LABS: Hematocrit 34.8 % (37-47); Hemoglobin 10.9 g/dL (12.0-15.0); Mean Corp Hgb Conc 31.3 g/dL (32-36); Mean Corpuscular Hgb 22.9 pg (27.0-32.0); Platelet Count 309 K/mm3 (150-450); RBC Distribution Width CV 15.7 % (11.6-14.6); RBC Distribution Width SD 41.2 fl (35.1-43.9); Red Blood Count 4.77 M/mm3 (4.2-5.4)
[2021-01-02 07:08] LABS: ALB/GLOB Ratio 0.6 RATIO (0.9-2.4); AST(SGOT) 29 U/L (15-37); Alanine Aminotransfer ALT/SGPT 29 U/L (13-56); Albumin, Serum 2.5 g/dL (3.2-5.0); Alkaline Phosphatase 53 U/L (45-117); Anion Gap 5 (5-15); BUN 23 mg/dL (7-18); BUN/Creat Ratio 30.2 RATIO (10-20); Calcium,Total 7.9 mg/dL (8.5-10.1); Chloride 106 mmol/L (98-107); Creatinine, Serum 0.76 mg/dL (0.55-1.02); EST Glomerular Filtration Rate 85 mL/min (>60); Est Glom Filt Rate - Afr Amer 103 mL/min (>60); Estimated Creatinine Clearance 70.04 ml/min; Globulin 4.1 g/dL (2.2-4.2); Glucose 132 mg/dL (74-106); Magnesium 2.3 mg/dL (1.6-2.6); Phosphorus 3.6 mg/dL (2.5-4.9); Potassium 3.5 mmol/L (3.5-5.1); Protein, Total 6.6 g/dL (6.4-8.2); Sodium Level 139 mmol/L (136-145)
[2021-01-02] MEDS: levoFLOXacin IV 750 MG/150 ML BAG 100 MG IV (08:28)
[2021-01-02] MEDS: Famotidine 20 MG Tablet PO ×2 (08:29→22:40)
[2021-01-02] MEDS: dexAMETHasone 4 MG Tablet 6 MG PO (08:30)
[2021-01-02] MEDS: Enoxaparin 40 MG/0.4 ML Syringe SC ×2 (08:30→22:40)
--- NOTE | 2021-01-02 09:30 | PN.CC_ITS ---
Assessment & Plan Assessment/Plan (1) Sepsis with acute hypoxic respiratory failure: (2) COVID: (3) CAESAR (acute kidney injury): PLAN: RECOMMENDATIONS: 1. Avoid IV fluids if possible. Intermittent diuretics as tolerated 2. Continue remdesivir and Decadron therapy to complete courses 3. Airvo/BiPAP as indicated 4. Confirmed full CODE STATUS 5. Patient should be getting out of bed at least twice daily. Encourage incentive spirometer IMPRESSIONS: 1. Acute hypoxic respiratory failure secondary to COVID-19 Patient with significant hypoxia, groundglass opacity and positive COVID- 19 infection. Patient does not carry any underlying pulmonary diagnoses, but has not had an investigation either. Patient would be within 10 days of presentation, so remdesivir and Decadron would be indicated. Continue Airvo while awake, but may need BiPAP with sleeping. High clinical suspicion for undiagnosed obstructive sleep apnea, so BiPAP may be necessary. Continue to monitor closely, but patient is willing to be intubated if necessary. Cannot exclude the necessity of moving patient to the ICU for closer monitoring as patient may worsen over the next 3 to 4 days. No indication for discontinuation of remdesivir. Continue to follow blood sugars closely given Decadron therapy. Patient was challenged with diuretic therapy yesterday and tolerated well. We will continue with intermittent diuretics. 2. Acute kidney injury Resolved. Discontinue IV fluids as this can lead to worsening of hypoxic respiratory failure. Continue to monitor with daily labs. 3. Morbid obesity/anemia Complicates care, management, recovery and prognosis. Monitor for clinical signs of bleeding. We will need to watch patient closely for hyperglycemia Subjective Subjective The patient has done well over the last 24 hours, but has had a waxing and waning oxygenation. Patient was as high as 90% FiO2 yesterday, but is down to 65% this morning and feels subjectively improved. Patient is not reporting any pain, nausea or vomiting. Patient does state that she was only out of bed briefly. Objective Data Objective Data Vital Signs: Vital Signs Temp Pulse Resp BP Pulse Ox 36.4 C L 68 22 H 147/94 H 97 01/02/21 08:33 01/02/21 08:33 01/02/21 08:33 01/02/21 08:33 01/02/21 08:33 Oxygen Flow Rate (L/min) 50 Oxygen Delivery Method Airvo Weight: 112.1 kg Body Mass Index (BMI) 45.1 Intake & Output: Intake and Output for Last 24 Hours 12/31/20 01/01/21 01/02/21 23:59 23:59 23:59 Intake Total 1160 / 1360 1300 / 1600 750 / 750 Output Total 400 / 520 695 / 795 250 / 250 Balance 760 / 840 605 / 805 500 / 500 Lab / Micro Data Result Diagrams: 01/02/21 06:22 01/02/21 06:22 Labs: Laboratory Results - last 24 hr 01/02/21 06:22: WBC 5.0, RBC 4.77, Hgb 10.9 L, Hct 34.8 L, MCV 73.0 L, MCH 22.9 L, MCHC 31.3 L, RDW Std Deviation 41.2, RDW Coeff of Carlos 15.7 H, Plt Count 309, MPV 10.0 01/02/21 06:22: Sodium 139, Potassium 3.5, Chloride 106, Carbon Dioxide 28.0, Anion Gap 5, BUN 23 H, Creatinine 0.76, Estim Creat Clear Calc 70.04, Est GFR (MDRD) Af Amer 103, Est GFR (MDRD) Non-Af 85, BUN/Creatinine Ratio 30.2 H, Glucose 132 H, Calcium 7.9 L, Phosphorus 3.6, Magnesium 2.3, Total Bilirubin 0.30, AST 29, ALT 29, Alkaline Phosphatase 53, Total Protein 6.6, Albumin 2.5 L, Globulin 4.1, Albumin/Globulin Ratio 0.6 L Micro: Microbiology 12/30/20 21:45 Blood Culture (Wb) - Anticubital Right Blood Culture - Preliminary No growth in 48 hours. 12/30/20 20:53 Blood Culture (Wb) - Anticubital Left Blood Culture - Preliminary No growth in 48 hours. 12/31/20 08:45 Interface Orders Legionella Antigen - Final 12/31/20 08:45 Interface Orders Streptococcus pneumoniae Antigen (M - Final Streptococcus pneumonia Ag Physical Exam Const alert, oriented x3 and no apparent distress General Appearance: cooperative and well developed Nutritional Appearance: morbidly obese HEENT normocephalic, head/scalp atraumatic and moist oral mucous membranes Eyes PERRL and EOMs intact bilaterally Neck full ROM and no lymphadenopathy Chest inspection of chest normal Resp Effort and Inspection: Negative for able to speak in complete sentences, stridor, uses accessory muscles, tracheal deviation or tripod positioning Auscultation: diminished lung sounds; Negative for rales, rhonchi or wheezes Percussion: Negative for dullness Cardio regular rate, regular rhythm, S1 normal heart sound, S2 normal heart sound, no murmurs, no rub and no gallops GI normal to inspection, nondistended, normoactive bowel sounds no CVA tenderness Extremity no clubbing, cyanosis or edema Skin no rashes or lesions noted Neuro oriented x3, CN's II-XII intact bilaterally, moves all extremities and no focal motor deficits Psych cooperative and affect normal Charges/Coding Visit Charges Inpatient E&M: 13013 Subs Hosp L3
--- NOTE | 2021-01-02 11:52 | PN.HOSP_ITS ---
Subjective Subjective Feels a bit better, goes between interval and BiPAP still. Objective Data Objective Data Vital Signs: Vital Signs Temp Pulse Resp BP Pulse Ox 97.6 F L 68 22 H 147/94 H 97 01/02/21 08:33 01/02/21 08:33 01/02/21 08:33 01/02/21 08:33 01/02/21 08:33 Oxygen Flow Rate (L/min) 50 Oxygen Delivery Method Airvo Weight: 247 lb 2.211 oz Body Mass Index (BMI) 45.1 Intake & Output: Intake and Output for Last 24 Hours 01/01/21 01/02/21 01/03/21 03:59 03:59 03:59 Intake Total 1610 / 1610 1400 / 1400 570 / 570 Output Total 520 / 520 675 / 675 650 / 650 Balance 1090 / 1090 725 / 725 -80 / -80 Lab / Micro Data Result Diagrams: 01/02/21 06:22 01/02/21 06:22 Labs: Laboratory Results - last 24 hr 01/02/21 06:22: WBC 5.0, RBC 4.77, Hgb 10.9 L, Hct 34.8 L, MCV 73.0 L, MCH 22.9 L, MCHC 31.3 L, RDW Std Deviation 41.2, RDW Coeff of Carlos 15.7 H, Plt Count 309, MPV 10.0 01/02/21 06:22: Sodium 139, Potassium 3.5, Chloride 106, Carbon Dioxide 28.0, An ion Gap 5, BUN 23 H, Creatinine 0.76, Estim Creat Clear Calc 70.04, Est GFR ( MDRD) Af Amer 103, Est GFR (MDRD) Non-Af 85, BUN/Creatinine Ratio 30.2 H, Glucose 132 H, Calcium 7.9 L, Phosphorus 3.6, Magnesium 2.3, Total Bilirubin 0.30, AST 29, ALT 29, Alkaline Phosphatase 53, Total Protein 6.6, Albumin 2.5 L, Globulin 4.1, Albumin/Globulin Ratio 0.6 L Micro: Microbiology 12/30/20 21:45 Blood Culture (Wb) - Anticubital Right Blood Culture - Preliminary No growth in 48 hours. 12/30/20 20:53 Blood Culture (Wb) - Anticubital Left Blood Culture - Preliminary No growth in 48 hours. 12/31/20 08:45 Interface Orders Legionella Antigen - Final 12/31/20 08:45 Interface Orders Streptococcus pneumoniae Antigen (M - Final Streptococcus pneumonia Ag Physical Exam Const alert, oriented x3 and no apparent distress General Appearance: cooperative HEENT normocephalic Eyes PERRL, EOMs intact bilaterally and conjunctivae normal Neck supple and no JVD Resp normal respiratory effort, no retractions, no use of accessory muscles and clear to auscultation bilaterally Auscultation: diminished lung sounds; Negative for crackles, rales, rhonchi or wheezes Cardio regular rate, regular rhythm, S1 normal heart sound, S2 normal heart sound and no murmurs GI soft to palpation, non-tender and non-distended; Negative for hepatosplenomegaly Extremity no clubbing, cyanosis or edema Skin no rashes or lesions noted Neuro no focal motor deficits and no sensory deficits noted Psych affect normal Appearance: appropriate Assessment & Plan Assessment/Plan (1) COVID: (2) Sepsis with acute hypoxic respiratory failure: (3) CAESAR (acute kidney injury): PLAN: 1. Acute hypoxic respiratory failure secondary to COVID-19 pneumonia -D-dimer was slightly elevated however CTA of the chest was negative for PE -Appreciate pulmonology assistance -Continue with remdesivir and Decadron -Continue with air Vo and intermittent BiPAP whenever she is sleeping. She is doing her incentive spirometry as instructed -She has not been needing BiPAP while awake. -We will monitor for as needed dosing of Lasix, she did receive a dose on 01/01/2021 2. Morbid obesity complicates care likely a component of sleep apnea as well DVT: Lovenox Charges/Coding Visit Charges Inpatient E&M: 97049 Subs Hosp L2
--- NOTE | 2021-01-02 16:00 | PCM.PN.ID ---
Physical Exam Narrative Feeling better, no fever, breathing easier, some sputum Const alert and no apparent distress General Appearance: cooperative Resp Auscultation: diminished lung sounds Cardio regular rate and regular rhythm GI normal to inspection, nondistended, normoactive bowel sounds Skin no rashes or lesions noted ID ID: Route of nutrition/ use of supplements: [] Nutritional Intake: [] IV Site: [] Walker Catheter: [] Assessment & Plan Assessment/Plan (1) COVID: PLAN: Sx started 12/21/20. Unvaccinated. Quarantine for 20 days, completes 01/10/21. On dex, remdesivir, lovenox 40mg bid. Feeling better, O2 improved. Strep UAg (+), on levaquin. Encouraged her to get covid shot once she is out of iso. also with covid, doing ok. Will follow (2) Sepsis with acute hypoxic respiratory failure: (3) CAESAR (acute kidney injury):
[2021-01-02] MEDS: 0.9% Saline Lock 10 ML Syringe IV (22:42)
[2021-01-03] VITALS (16 sets, daily range): BP systolic 116–138; BP diastolic 85–100; PULSE 59–86; RESP 12–25; TEMP 36.6–37.6; O2SAT 92–100
[2021-01-03] MEDS: Ipratropium/Albuterol Sulfate 3 ML AMPUL.NEB INHALATION ×3 (01:11→19:45)
[2021-01-03 07:02] LABS: Hematocrit 34.7 % (37-47); Hemoglobin 10.6 g/dL (12.0-15.0); Mean Corp Hgb Conc 30.5 g/dL (32-36); Mean Corpuscular Hgb 22.3 pg (27.0-32.0); Mean Corpuscular Volume 72.9 fL (81-99); Mean Platelet Vol. 10.3 fl (6.2-12.0); Platelet Count 332 K/mm3 (150-450); RBC Distribution Width CV 15.9 % (11.6-14.6); RBC Distribution Width SD 41.5 fl (35.1-43.9); Red Blood Count 4.76 M/mm3 (4.2-5.4); White Blood Count 5.4 K/mm3 (4.4-11.0)
[2021-01-03 07:29] LABS: ALB/GLOB Ratio 0.6 RATIO (0.9-2.4); AST(SGOT) 24 U/L (15-37); Alanine Aminotransfer ALT/SGPT 24 U/L (13-56); Albumin, Serum 2.5 g/dL (3.2-5.0); Alkaline Phosphatase 52 U/L (45-117); Anion Gap 6 (5-15); BUN 21 mg/dL (7-18); BUN/Creat Ratio 33.1 RATIO (10-20); Calcium,Total 8.1 mg/dL (8.5-10.1); Chloride 106 mmol/L (98-107); Creatinine, Serum 0.63 mg/dL (0.55-1.02); EST Glomerular Filtration Rate 105 mL/min (>60); Est Glom Filt Rate - Afr Amer 128 mL/min (>60); Estimated Creatinine Clearance 84.49 ml/min; Globulin 3.9 g/dL (2.2-4.2); Glucose 104 mg/dL (74-106); Potassium 3.4 mmol/L (3.5-5.1); Protein, Total 6.4 g/dL (6.4-8.2); Sodium Level 139 mmol/L (136-145)
--- NOTE | 2021-01-03 08:43 | PN.CC_ITS ---
Assessment & Plan Assessment/Plan (1) Sepsis with acute hypoxic respiratory failure: (2) COVID: (3) CAESAR (acute kidney injury): PLAN: RECOMMENDATIONS: 1. Avoid IV fluids if possible. Intermittent diuretics as tolerated 2. Continue remdesivir and Decadron therapy to complete courses 3. Wean oxygen as tolerated. Would consider BiPAP with sleep until sleep study can be obtained 4. Confirmed full CODE STATUS 5. Patient should be getting out of bed at least twice daily. Encourage incentive spirometer IMPRESSIONS: 1. Acute hypoxic respiratory failure secondary to COVID-19 Patient with significant hypoxia, groundglass opacity and positive COVID- 19 infection. Patient does not carry any underlying pulmonary diagnoses, but has not had an investigation either. Patient would be within 10 days of presentation, so remdesivir and Decadron would be indicated. Continue nasal cannula while awake, but may need BiPAP with sleeping. High clinical suspicion for undiagnosed obstructive sleep apnea, so BiPAP may be necessary. Continue to monitor closely, but patient is willing to be intubated if necessary. Doubt patient will require transition to intensive care. No indication for discontinuation of remdesivir. Continue to follow blood sugars closely given Decadron therapy. Patient was challenged with diuretic therapy in the past and tolerated well. We will continue with intermittent diuretics. 2. Acute kidney injury Resolved. Discontinue IV fluids as this can lead to worsening of hypoxic respiratory failure. Continue to monitor with daily labs. 3. Morbid obesity/anemia Complicates care, management, recovery and prognosis. Monitor for clinica l signs of bleeding. We will need to watch patient closely for hyperglycemia Subjective Subjective Patient did okay overnight. Patient feeling subjectively improved compared to yesterday. Patient was in the chair and does report some dyspnea on exertion, but feels this is improving. Objective Data Objective Data Vital Signs: Vital Signs Temp Pulse Resp BP Pulse Ox 37.0 C 62 25 H 138/87 H 96 01/03/21 02:00 01/03/21 07:00 01/03/21 05:31 01/03/21 02:00 01/03/21 05:31 Oxygen Flow Rate (L/min) 11 Oxygen Delivery Method Bi-pap Weight: 112.1 kg Body Mass Index (BMI) 45.1 Intake & Output: Intake and Output for Last 24 Hours 01/01/21 01/02/21 01/03/21 23:59 23:59 23:59 Intake Total 1300 / 1600 1360 / 1360 250 / 250 Output Total 695 / 795 950 / 950 Balance 605 / 805 410 / 410 250 / 250 Medical Nutrition Assessment Dietitian: Nutrition Therapy Diagnosis Start: 01/02/21 12:07 Freq: Status: Active Protocol: Document 01/02/21 12:07 RICHARD (Rec: 01/02/21 12:07 [id number]) Nutrition Malnutrition Evidence of Malnutrition Exists Yes Malnutrition (severe): Acute Illness/Injury Evidenced By Suboptimal Energy Intake ( Severe),Weight Loss (Severe) Clinical Problem Acute Disease or Injury Related Malnutrition Etiology severe, acute malnutrition related to inadequate energy intake w/ increased nutrient needs d/t acute COVID-19 illness Signs/Symptoms as evidenced by pt reports of decreased appetite, estimated PO intake meeting <50% of estimated nutritional needs x 1 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 Lab / Micro Data Result Diagrams: 01/03/21 06:28 01/03/21 06:28 Labs: Laboratory Results - last 24 hr 01/03/21 06:28: WBC 5.4, RBC 4.76, Hgb 10.6 L, Hct 34.7 L, MCV 72.9 L, MCH 22.3 L, MCHC 30.5 L, RDW Std Deviation 41.5, RDW Coeff of Carlos 15.9 H, Plt Count 332, MPV 10.3 01/03/21 06:28: Sodium 139, Potassium 3.4 L, Chloride 106, Carbon Dioxide 27.0, Anion Gap 6, BUN 21 H, Creatinine 0.63, Estim Creat Clear Calc 84.49, Est GFR (MDRD) Af Amer 128, Est GFR (MDRD) Non-Af 105, BUN/Creatinine Ratio 33.1 H, Glucose 104, Calcium 8.1 L, Total Bilirubin 0.30, AST 24, ALT 24, Alkaline Phosphatase 52, Total Protein 6.4, Albumin 2.5 L, Globulin 3.9, Albumin/Globulin Ratio 0.6 L Micro: Microbiology 12/30/20 21:45 Blood Culture (Wb) - Anticubital Right Blood Culture - Preliminary No growth in 48 hours. 12/30/20 20:53 Blood Culture (Wb) - Anticubital Left Blood Culture - Preliminary No growth in 48 hours. 12/31/20 08:45 Interface Orders Legionella Antigen - Final 12/31/20 08:45 Interface Orders Streptococcus pneumoniae Antigen (M - Final Streptococcus pneumonia Ag Physical Exam Const alert, oriented x3 and no apparent distress General Appearance: cooperative and well developed Nutritional Appearance: morbidly obese HEENT normocephalic, head/scalp atraumatic and moist oral mucous membranes Eyes PERRL and EOMs intact bilaterally Neck full ROM and no lymphadenopathy Chest inspection of chest normal Resp Effort and Inspection: Negative for able to speak in complete sentences, stridor, uses accessory muscles, tracheal deviation or tripod positioning Auscultation: diminished lung sounds; Negative for rales, rhonchi or wheezes Percussion: Negative for dullness Cardio regular rate, regular rhythm, S1 normal heart sound, S2 normal heart sound, no murmurs, no rub and no gallops GI normal to inspection, nondistended, normoactive bowel sounds no CVA tenderness Extremity no clubbing, cyanosis or edema Skin no rashes or lesions noted Neuro oriented x3, CN's II-XII intact bilaterally, moves all extremities and no focal motor deficits Psych cooperative and affect normal Charges/Coding Visit Charges Inpatient E&M: 43286 Subs Hosp L3
[2021-01-03] MEDS: dexAMETHasone 4 MG Tablet 6 MG PO (09:24)
[2021-01-03] MEDS: Potassium Chloride Oral Tablet 20 MEQ 40 MEQ PO (09:24)
[2021-01-03] MEDS: Famotidine 20 MG Tablet PO ×2 (09:25→22:33)
[2021-01-03] MEDS: Enoxaparin 40 MG/0.4 ML Syringe SC ×2 (09:27→22:33)
[2021-01-03] MEDS: levoFLOXacin IV 750 MG/150 ML BAG 100 MG IV (09:28)
[2021-01-03] MEDS: 0.9% Saline Lock 10 ML Syringe IV (11:38)
--- NOTE | 2021-01-03 12:21 | PN.HOSP_ITS ---
Subjective Subjective Doing well, feels better today. Breathing little bit easier. Requiring lower settings on her BiPAP. Objective Data Objective Data Vital Signs: Vital Signs Temp Pulse Resp BP Pulse Ox 97.9 F 75 19 H 116/86 H 94 01/03/21 08:00 01/03/21 11:00 01/03/21 08:00 01/03/21 08:00 01/03/21 08:00 Oxygen Flow Rate (L/min) 9 Oxygen Delivery Method Nasal Cannula Weight: 247 lb 2.211 oz Body Mass Index (BMI) 45.1 Intake & Output: Intake and Output for Last 24 Hours 01/02/21 01/03/21 01/04/21 03:59 03:59 03:59 Intake Total 1400 / 1400 1060 / 1060 390 / 390 Output Total 675 / 675 850 / 850 150 / 150 Balance 725 / 725 210 / 210 240 / 240 Medical Nutrition Assessment Dietitian: Nutrition Therapy Diagnosis Start: 01/02/21 12:07 Freq: Status: Active Protocol: Document 01/02/21 12:07 (Rec: 01/02/21 12:07 [id number]) Nutrition Malnutrition Evidence of Malnutrition Exists Yes Malnutrition (severe): Acute Illness/Injury Evidenced By Suboptimal Energy Intake ( Severe),Weight Loss (Severe) Clinical Problem Acute Disease or Injury Related Malnutrition Etiology severe, acute malnutrition related to inadequate energy intake w/ increased nutrient needs d/t acute COVID-19 illness Signs/Symptoms as evidenced by pt reports of decreased appetite, estimated PO intake meeting <50% of estimated 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 Lab / Micro Data Result Diagrams: 01/03/21 06:28 01/04/21 07:22 Labs: Laboratory Results - last 24 hr 01/03/21 06:28: WBC 5.4, RBC 4.76, Hgb 10.6 L, Hct 34.7 L, MCV 72.9 L, MCH 22.3 L, MCHC 30.5 L, RDW Std Deviation 41.5, RDW Coeff of Carlos 15.9 H, Plt Count 332, MPV 10.3 01/03/21 06:28: Sodium 139, Potassium 3.4 L, Chloride 106, Carbon Dioxide 27.0, Anion Gap 6, BUN 21 H, Creatinine 0.63, Estim Creat Clear Calc 84.49, Est GFR (MDRD) Af Amer 128, Est GFR (MDRD) Non-Af 105, BUN/Creatinine Ratio 33.1 H, Glucose 104, Calcium 8.1 L, Total Bilirubin 0.30, AST 24, ALT 24, Alkaline Phosphatase 52, Total Protein 6.4, Albumin 2.5 L, Globulin 3.9, Albumin/Globulin Ratio 0.6 L Micro: Microbiology 12/30/20 21:45 Blood Culture (Wb) - Anticubital Right Blood Culture - Preliminary No growth in 48 hours. 12/30/20 20:53 Blood Culture (Wb) - Anticubital Left Blood Culture - Preliminary No growth in 48 hours. 12/31/20 08:45 Interface Orders Legionella Antigen - Final 12/31/20 08:45 Interface Orders Streptococcus pneumoniae Antigen (M - Final Streptococcus pneumonia Ag Physical Exam Const alert, oriented x3 and no apparent distress General Appearance: cooperative HEENT normocephalic Eyes PERRL, EOMs intact bilaterally and conjunctivae normal Neck supple and no JVD Resp normal respiratory effort, no retractions, no use of accessory muscles and clear to auscultation bilaterally Auscultation: diminished lung sounds; Negative for crackles, rales, rhonchi or wheezes Cardio regular rate, regular rhythm, S1 normal heart sound, S2 normal heart sound and no murmurs GI soft to palpation, non-tender and non-distended; Negative for hepatosplenomegaly Extremity no clubbing, cyanosis or edema Skin no rashes or lesions noted and no wounds Neuro no focal motor deficits and no sensory deficits noted Psych affect normal Appearance: appropriate Assessment & Plan Assessment/Plan (1) COVID: (2) Sepsis with acute hypoxic respiratory failure: (3) CAESAR (acute kidney injury): PLAN: 1. Acute hypoxic respiratory failure secondary to COVID-19 pneumonia -D-dimer was slightly elevated however CTA of the chest was negative for PE -Appreciate pulmonology assistance -Continue with remdesivir and Decadron -Continue with air Vo and intermittent BiPAP whenever she is sleeping. She is doing her incentive spirometry as instructed -She has not been needing BiPAP while awake. -We will monitor for as needed dosing of Lasix, she did receive a dose on 01/01/2021 2. Morbid obesity complicates care likely a component of sleep apnea as well DVT: Lovenox Charges/Coding Visit Charges Inpatient E&M: 37070 Subs Hosp L2
[2021-01-04] VITALS (18 sets, daily range): BP systolic 126–152; BP diastolic 80–116; PULSE 54–90; RESP 12–38; TEMP 36.4–37.6; O2SAT 88–99
[2021-01-04] MEDS: Ipratropium/Albuterol Sulfate 3 ML AMPUL.NEB INHALATION ×4 (01:26→19:56)
--- NOTE | 2021-01-04 07:44 | PCM.PN.HOSP ---
Subjective Subjective Still need BiPAP with sleep however FiO2 is coming down. During her breaks from BiPAP while she is awake she is maintaining her oxygen sats on just a regular nasal cannula at around 5 to 6 L. Objective Data Objective Data Vital Signs: Vital Signs Temp Pulse Resp BP Pulse Ox 97.9 F 63 20 H 152/80 H 95 01/04/21 03:07 01/04/21 05:23 01/04/21 05:23 01/04/21 03:07 01/04/21 05:23 Oxygen Flow Rate (L/min) 5 Oxygen Delivery Method Bi-pap Weight: 247 lb 2.211 oz Body Mass Index (BMI) 45.1 Intake & Output: Intake and Output for Last 24 Hours 01/03/21 01/04/21 01/05/21 03:59 03:59 03:59 Intake Total 1060 / 1060 1120 / 1120 Output Total 850 / 850 150 / 150 Balance 210 / 210 970 / 970 Medical Nutrition Assessment Dietitian: Nutrition Therapy Diagnosis Start: 01/02/21 12:07 Freq: Status: Active Protocol: Document 01/02/21 12:07 (Rec: 01/02/21 12:07 [id number]) Nutrition Malnutrition Evidence of Malnutrition Exists Yes Malnutrition (severe): Acute Illness/Injury Evidenced By Suboptimal Energy Intake ( Severe),Weight Loss (Severe) Clinical Problem Acute Disease or Injury Related Malnutrition Etiology severe, acute malnutrition related to inadequate energy intake w/ increased nutrient needs d/t acute COVID-19 illness Signs/Symptoms as evidenced by pt reports of decreased appetite, estimated PO intake meeting <50% of estimated nutritional needs 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 Lab / Micro Data Result Diagrams: 01/03/21 06:28 01/04/21 07:22 Micro: Microbiology 12/30/20 21:45 Blood Culture (Wb) - Anticubital Right Blood Culture - Preliminary No growth in 48 hours. 12/30/20 20:53 Blood Culture (Wb) - Anticubital Left Blood Culture - Preliminary No growth in 48 hours. 12/31/20 08:45 Interface Orders Legionella Antigen - Final 12/31/20 08:45 Interface Orders Streptococcus pneumoniae Antigen (M - Final Streptococcus pneumonia Ag Physical Exam Const alert, oriented x3 and no apparent distress General Appearance: cooperative HEENT normocephalic Eyes PERRL, EOMs intact bilaterally and conjunctivae normal Neck supple and no JVD Resp normal respiratory effort, no retractions, no use of accessory muscles and clear to auscultation bilaterally Auscultation: wheezes and diminished lung sounds; Negative for crackles, rales or rhonchi Cardio regular rate, regular rhythm, S1 normal heart sound, S2 normal heart sound and no murmurs GI soft to palpation, non-tender and non-distended; Negative for hepatosplenomegaly Extremity no clubbing, cyanosis or edema Skin no rashes or lesions noted and no wounds Neuro no focal motor deficits and no sensory deficits noted Psych affect normal Appearance: appropriate Assessment & Plan Assessment/Plan (1) COVID: (2) Sepsis with acute hypoxic respiratory failure: (3) CAESAR (acute kidney injury): PLAN: 1. Acute hypoxic respiratory failure secondary to COVID-19 pneumonia -D-dimer was slightly elevated however CTA of the chest was negative for PE -Appreciate pulmonology assistance -Completed remdesivir, continue with Decadron. -Continue with air Vo and intermittent BiPAP whenever she is sleeping. She is doing her incentive spirometry as instructed -She has not been needing BiPAP while awake. -We will monitor for as needed dosing of Lasix, she did receive a dose on 01/01/2021 2. Morbid obesity complicates care likely a component of sleep apnea as well DVT: Lovenox Charges/Coding Visit Charges Inpatient E&M: 44932 Subs Hosp L2
[2021-01-04 08:07] LABS: Anion Gap 7 (5-15); BUN 17 mg/dL (7-18); BUN/Creat Ratio 26.5 RATIO (10-20); Calcium,Total 8.1 mg/dL (8.5-10.1); Chloride 105 mmol/L (98-107); Creatinine, Serum 0.64 mg/dL (0.55-1.02); EST Glomerular Filtration Rate 104 mL/min (>60); Est Glom Filt Rate - Afr Amer 126 mL/min (>60); Estimated Creatinine Clearance 83.17 ml/min; Glucose 105 mg/dL (74-106); Potassium 4.2 mmol/L (3.5-5.1); Sodium Level 139 mmol/L (136-145)
[2021-01-04] MEDS: Enoxaparin 40 MG/0.4 ML Syringe SC ×2 (11:08→22:46)
[2021-01-04] MEDS: dexAMETHasone 4 MG Tablet 6 MG PO (11:08)
[2021-01-04] MEDS: Famotidine 20 MG Tablet PO ×2 (11:08→22:37)
[2021-01-04] MEDS: levoFLOXacin IV 750 MG/150 ML BAG 100 MG IV (11:10)
--- NOTE | 2021-01-04 14:55 | PN.CC_ITS ---
Assessment & Plan Assessment/Plan (1) Sepsis with acute hypoxic respiratory failure: (2) COVID: (3) CAESAR (acute kidney injury): PLAN: RECOMMENDATIONS: 1. Avoid IV fluids if possible. Intermittent diuretics as tolerated 2. Completed remdesivir. Complete Decadron therapy to complete course 3. Wean oxygen as tolerated. Would consider BiPAP with sleep until sleep study can be obtained 4. Confirmed full CODE STATUS 5. Patient should be getting out of bed at least twice daily. Encourage incentive spirometer 6. Potential discharge once patient able to ambulate on 6 L or less IMPRESSIONS: 1. Acute hypoxic respiratory failure secondary to COVID-19 Patient with significant hypoxia, groundglass opacity and positive COVID- 19 infection. Patient does not carry any underlying pulmonary diagnoses, but has not had an investigation either. Patient would be within 10 days of presentation, so remdesivir and Decadron would be indicated. Continue nasal cannula while awake, but may need BiPAP with sleeping. High clinical suspicion for undiagnosed obstructive sleep apnea, so BiPAP may be necessary. Patient continues to improve. If patient is able to tolerate ambulation on 6 L or less, likely okay to discharge from a pulmonary perspective with follow-up in our office in 4 weeks to complete work-up for RANDELL and to attempt discontinuation of supplemental oxygen. Given completion of remdesivir, LFTs are likely not ne cessary. 2. Acute kidney injury Resolved. Discontinue IV fluids as this can lead to worsening of hypoxic respiratory failure. Continue to monitor with daily labs. 3. Morbid obesity/anemia Complicates care, management, recovery and prognosis. Monitor for clinical signs of bleeding. We will need to watch patient closely for hyperglyc emia Subjective Subjective Patient did well overnight. No acute issues were reported. Patient feels subjectively improved compared to previous. Patient did work with PT and was found to require 7 L nasal cannula with ambulation of 60 feet. Objective Data Objective Data Vital Signs: Vital Signs Temp Pulse Resp BP Pulse Ox 36.6 C 74 23 H 139/116 H 93 01/04/21 09:00 01/04/21 13:43 01/04/21 13:43 01/04/21 09:00 01/04/21 14:42 Oxygen Flow Rate (L/min) 5 Oxygen Delivery Method Nasal Cannula Weight: 112.1 kg Body Mass Index (BMI) 45.1 Intake & Output: Intake and Output for Last 24 Hours 01/02/21 01/03/21 01/04/21 23:59 23:59 23:59 Intake Total 1360 / 1360 1130 / 1370 849 / 849 Output Total 950 / 950 150 / 150 Balance 410 / 410 980 / 1220 849 / 849 Medical Nutrition Assessment Dietitian: Nutrition Therapy Diagnosis Start: 01/02/21 12:07 Freq: Status: Active Protocol: Document 01/02/21 12:07 RICHARD (Rec: 01/02/21 12:07 [id number]) Nutrition Malnutrition Evidence of Malnutrition Exists Yes Malnutrition (severe): Acute Illness/Injury Evidenced By Suboptimal Energy Intake ( Severe),Weight Loss (Severe) Clinical Problem Acute Disease or Injury Related Malnutrition Etiology severe, acute malnutrition related to inadequate energy intake w/ increased nutrient needs d/t acute COVID-19 illness Signs/Symptoms as evidenced by pt reports of decreased appetite, estimated PO intake meeting <50% of estimated nutritional needs 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 Lab / Micro Data Result Diagrams: 01/03/21 06:28 01/04/21 07:22 Labs: Laboratory Results - last 24 hr 01/04/21 07:22: Sodium 139, Potassium 4.2, Chloride 105, Carbon Dioxide 27.0, Anion Gap 7, BUN 17, Creatinine 0.64, Estim Creat Clear Calc 83.17, Est GFR (MDRD) Af Amer 126, Est GFR (MDRD) Non-Af 104, BUN/Creatinine Ratio 26.5 H, Glucose 105, Calcium 8.1 L Micro: Microbiology 12/30/20 21:45 Blood Culture (Wb) - Anticubital Right Blood Culture - Preliminary No growth in 48 hours. 12/30/20 20:53 Blood Culture (Wb) - Anticubital Left Blood Culture - Preliminary No growth in 48 hours. 12/31/20 08:45 Interface Orders Legionella Antigen - Final 12/31/20 08:45 Interface Orders Streptococcus pneumoniae Antigen (M - Final Streptococcus pneumonia Ag Physical Exam Const alert, oriented x3 and no apparent distress General Appearance: cooperative and well developed Nutritional Appearance: morbidly obese HEENT normocephalic, head/scalp atraumatic and moist oral mucous membranes Eyes PERRL and EOMs intact bilaterally Neck full ROM and no lymphadenopathy Chest inspection of chest normal Resp Effort and Inspection: Negative for able to speak in complete sentences, stridor, uses accessory muscles, tracheal deviation or tripod positioning Auscultation: diminished lung sounds; Negative for rales, rhonchi or wheezes Percussion: Negative for dullness Cardio regular rate, regular rhythm, S1 normal heart sound, S2 normal heart sound, no murmurs, no rub and no gallops GI normal to inspection, nondistended, normoactive bowel sounds no CVA tenderness Extremity no clubbing, cyanosis or edema Skin no rashes or lesions noted Neuro oriented x3, CN's II-XII intact bilaterally, moves all extremities and no focal motor deficits Psych cooperative and affect normal Charges/Coding Visit Charges Inpatient E&M: 30918 Subs Hosp L2
--- NOTE | 2021-01-04 15:09 | CASEMGMT ---
RN CM NOTE: Per Dr Montiel, if pt able to tolerate <6 L/M O2, she may be ready for discharge over the weekend. Pt will need ambulatory home testing completed prior to discharge. Green sheet placed on chart w/instructions for Home O2 set-up w/[employer], if pt qualifies. David WHITEN RN CM
[2021-01-04] MEDS: 0.9% Saline Lock 10 ML Syringe IV (22:38)
[2021-01-05] VITALS (15 sets, daily range): BP systolic 118–139; BP diastolic 58–92; PULSE 48–81; RESP 12–31; TEMP 36.5–36.9; O2SAT 84–98
[2021-01-05] MEDS: Ipratropium/Albuterol Sulfate 3 ML AMPUL.NEB INHALATION ×4 (00:59→19:46)
--- NOTE | 2021-01-05 07:59 | PCM.PN.INT ---
Assessment & Plan Assessment/Plan (1) Sepsis with acute hypoxic respiratory failure: (2) COVID: (3) CAESAR (acute kidney injury): PLAN: RECOMMENDATIONS: 1. Avoid IV fluids if possible. Intermittent diuretics as tolerated 2. Completed remdesivir. Complete Decadron p.o. to complete 10-day course 3. Wean oxygen as tolerated. Would consider BiPAP with sleep until sleep study can be obtained 4. Confirmed full CODE STATUS 5. Obtain walking oximetry 6. Potential discharge once patient able to ambulate on 6 L or less IMPRESSIONS: 1. Acute hypoxic respiratory failure secondary to COVID-19 Patient with significant hypoxia, groundglass opacity and positive COVID-19 infection. Patient does not carry any underlying pulmonary diagnoses, but has not had an investigation either. Patient would be within 10 days of presentation, so remdesivir and Decadron would be indicated. Continue nasal cannula while awake, but may need BiPAP with sleeping. High clinical suspicion for undiagnosed obstructive sleep apnea, so BiPAP may be necessary. Patient continues to improve. If patient is able to tolerate ambulation on 6 L or less, likely okay to discharge from a pulmonary perspective with follow-up in our office in 4 weeks to complete work-up for RANDELL and to attempt discontinuation of supplemental oxygen. Given completion of remdesivir, LFTs are likely not necessary. Decadron can be completed p.o. if patient qualifies for discharge. 2. Acute kidney injury Resolved. Discontinue IV fluids as this can lead to worsening of hypoxic respiratory failure. Continue to monitor with daily labs. 3. Morbid obesity/anemia Complicates care, management, recovery and prognosis. Monitor for clinical signs of bleeding. We will need to watch patient closely for hyperglycemia Subjective Subjective Patient did well overnight. No acute issues were reported. Patient states cough is intermittent and nonproductive. Patient's oxygen requirements have decreased overnight. Patient feels she is strong enough to go home. Objective Data Objective Data Vital Signs: Vital Signs Temp Pulse Resp BP Pulse Ox 36.9 C 71 18 130/58 H 95 01/05/21 03:00 01/05/21 07:40 01/05/21 07:40 01/05/21 03:00 01/05/21 07:40 Oxygen Flow Rate (L/min) 3 Oxygen Delivery Method Nasal Cannula Weight: 112.1 kg Body Mass Index (BMI) 45.1 Intake & Output: Intake and Output for Last 24 Hours 01/03/21 01/04/21 01/05/21 23:59 23:59 23:59 Intake Total 1130 / 1370 969 / 969 Output Total 150 / 150 0 / 0 Balance 980 / 1220 969 / 969 0 / 0 Medical Nutrition Assessment Dietitian: Nutrition Therapy Diagnosis Start: 01/02/21 12:07 Freq: Status: Active Protocol: Document 01/02/21 12:07 RICHARD (Rec: 01/02/21 12:07 [id number]) Nutrition Malnutrition Evidence of Malnutrition Exists Yes Malnutrition (severe): Acute Illness/Injury Evidenced By Suboptimal Energy Intake ( Severe),Weight Loss (Severe) Clinical Problem Acute Disease or Injury Related Malnutrition Etiology severe, acute malnutrition related to inadequate energy intake w/ increased nutrient needs d/t acute COVID-19 illness Signs/Symptoms as evidenced by pt reports of decreased appetite, estimated PO intake meeting <50% of estimated nutritional needs 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 Lab / Micro Data Result Diagrams: 01/03/21 06:28 01/04/21 07:22 Labs: Laboratory Results - last 24 hr 01/04/21 07:22: Sodium 139, Potassium 4.2, Chloride 105, Carbon Dioxide 27.0, Anion Gap 7, BUN 17, Creatinine 0.64, Estim Creat Clear Calc 83.17, Est GFR (MDRD) Af Amer 126, Est GFR (MDRD) Non-Af 104, BUN/Creatinine Ratio 26.5 H, Glucose 105, Calcium 8.1 L Micro: Microbiology 12/30/20 21:45 Blood Culture (Wb) - Anticubital Right Blood Culture - Final No growth in 5 days. 12/30/20 20:53 Blood Culture (Wb) - Anticubital Left Blood Culture - Final No growth in 5 days. 12/31/20 08:45 Interface Orders Legionella Antigen - Final 12/31/20 08:45 Interface Orders Streptococcus pneumoniae Antigen (M - Final Streptococcus pneumonia Ag Physical Exam Const alert, oriented x3 and no apparent distress General Appearance: cooperative and well developed Nutritional Appearance: morbidly obese HEENT normocephalic, head/scalp atraumatic and moist oral mucous membranes Eyes PERRL and EOMs intact bilaterally Neck full ROM and no lymphadenopathy Chest inspection of chest normal Resp Effort and Inspection: Negative for able to speak in complete sentences, stridor, uses accessory muscles, tracheal deviation or tripod positioning Auscultation: diminished lung sounds; Negative for rales, rhonchi or wheezes Percussion: Negative for dullness Cardio regular rate, regular rhythm, S1 normal heart sound, S2 normal heart sound, no murmurs, no rub and no gallops GI normal to inspection, nondistended, normoactive bowel sounds no CVA tenderness Extremity no clubbing, cyanosis or edema Skin no rashes or lesions noted Neuro oriented x3, CN's II-XII intact bilaterally, moves all extremities and no focal motor deficits Psych cooperative and affect normal Charges/Coding Visit Charges Inpatient E&M: 11056 Subs Hosp L2
[2021-01-05] MEDS: levoFLOXacin IV 750 MG/150 ML BAG 100 MG IV (10:15)
--- NOTE | 2021-01-05 10:48 | PN.HOSP_ITS ---
Subjective Subjective Feeling much better, however she needed 9 L of oxygen to maintain her oxygen sats with ambulation today. Objective Data Objective Data Vital Signs: Vital Signs Temp Pulse Resp BP Pulse Ox 97.7 F L 80 18 118/82 H 87 01/05/21 09:00 01/05/21 09:00 01/05/21 09:00 01/05/21 09:00 01/05/21 10:00 Oxygen Flow Rate (L/min) [ 9 AMBULATING with Oxygen #2] Oxygen Flow Rate (L/min) [ 5 AMBULATING with Oxygen #1] Oxygen Flow Rate (L/min) [At 3 REST with Oxygen] Oxygen Flow Rate (L/min) [At 0 REST on Room Air] Oxygen Flow Rate (L/min) 3 Oxygen Delivery Method Nasal Cannula Weight: 247 lb 2.211 oz Body Mass Index (BMI) 45.1 Intake & Output: Intake and Output for Last 24 Hours 01/04/21 01/05/21 01/06/21 03:59 03:59 03:59 Intake Total 1120 / 1120 729 / 729 Output Total 150 / 150 0 / 0 Balance 970 / 970 729 / 729 0 / 0 Medical Nutrition Assessment Dietitian: Nutrition Therapy Diagnosis Start: 01/02/21 12:07 Freq: Status: Active Protocol: Document 01/02/21 12:07 (Rec: 01/02/21 12:07 [id number]) Nutrition Malnutrition Evidence of Malnutrition Exists Yes Malnutrition (severe): Acute Illness/Injury Evidenced By Suboptimal Energy Intake ( Severe),Weight Loss (Severe) Clinical Problem Acute Disease or Injury Related Malnutrition Etiology severe, acute malnutrition related to inadequate energy intake w/ increased nutrient needs d/t acute COVID-19 illness Signs/Symptoms as evidenced by pt reports of decreased appetite, estimated PO intake meeting <50% of estimated nutritional needs 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 Lab / Micro Data Result Diagrams: 01/03/21 06:28 01/04/21 07:22 Micro: Microbiology 12/30/20 21:45 Blood Culture (Wb) - Anticubital Right Blood Culture - Final No growth in 5 days. 12/30/20 20:53 Blood Culture (Wb) - Anticubital Left Blood Culture - Final No growth in 5 days. 12/31/20 08:45 Interface Orders Legionella Antigen - Final 12/31/20 08:45 Interface Orders Streptococcus pneumoniae Antigen (M - Final Streptococcus pneumonia Ag Physical Exam Const alert, oriented x3 and no apparent distress General Appearance: cooperative HEENT normocephalic Eyes PERRL, EOMs intact bilaterally and conjunctivae normal Neck supple and no JVD Resp normal respiratory effort, no retractions, no use of accessory muscles and clear to auscultation bilaterally Auscultation: diminished lung sounds; Negative for crackles, rales, rhonchi or wheezes Cardio regular rate, regular rhythm, S1 normal heart sound, S2 normal heart sound and no murmurs GI soft to palpation, non-tender and non-distended; Negative for hepatosplenomegaly Extremity no clubbing, cyanosis or edema Skin no rashes or lesions noted and no wounds Neuro no focal motor deficits and no sensory deficits noted Psych affect normal Appearance: appropriate Assessment & Plan Assessment/Plan (1) COVID: (2) Sepsis with acute hypoxic respiratory failure: (3) CAESAR (acute kidney injury): PLAN: 1. Acute hypoxic respiratory failure secondary to COVID-19 pneumonia -D-dimer was slightly elevated however CTA of the chest was negative for PE -Appreciate pulmonology assistance -Completed remdesivir, continue with Decadron. -Continuing with BiPAP and nasal cannula. Unfortunately she did require 9 L with ambulation today -She has not been needing BiPAP while awake. -We will monitor for as needed dosing of Lasix 2. Morbid obesity complicates care likely a component of sleep apnea as well DVT: Lovenox Charges/Coding Visit Charges Inpatient E&M: 50739 Subs Hosp L2
[2021-01-05] MEDS: Famotidine 20 MG Tablet PO ×2 (11:31→21:03)
[2021-01-05] MEDS: dexAMETHasone 4 MG Tablet 6 MG PO (11:32)
[2021-01-05] MEDS: Enoxaparin 40 MG/0.4 ML Syringe SC ×2 (11:32→21:03)
[2021-01-05] MEDS: 0.9% Saline Lock 10 ML Syringe IV (12:18)
[2021-01-06] VITALS (12 sets, daily range): BP systolic 128–140; BP diastolic 80–92; PULSE 39–89; RESP 12–26; TEMP 36.6–37.5; O2SAT 88–99
[2021-01-06] MEDS: Ipratropium/Albuterol Sulfate 3 ML AMPUL.NEB INHALATION ×3 (01:13→13:46)
[2021-01-06 08:36] LABS: Anion Gap 4 (5-15); BUN 18 mg/dL (7-18); Calcium,Total 8.5 mg/dL (8.5-10.1); Chloride 107 mmol/L (98-107); Creatinine, Serum 0.78 mg/dL (0.55-1.02); EST Glomerular Filtration Rate 83 mL/min (>60); Est Glom Filt Rate - Afr Amer 100 mL/min (>60); Estimated Creatinine Clearance 68.25 ml/min; Glucose 89 mg/dL (74-106); Potassium 4.5 mmol/L (3.5-5.1); Sodium Level 139 mmol/L (136-145)
--- NOTE | 2021-01-06 08:52 | PN.CC_ITS ---
Assessment & Plan Assessment/Plan (1) Sepsis with acute hypoxic respiratory failure: (2) COVID: (3) CAESAR (acute kidney injury): PLAN: RECOMMENDATIONS: 1. Avoid IV fluids if possible. We will challenge with diuretics 2. Completed remdesivir. Complete Decadron p.o. to complete 10-day course 3. Wean oxygen as tolerated. Would consider BiPAP with sleep until sleep study can be obtained 4. Confirmed full CODE STATUS 5. Obtain walking oximetry following diuretic therapy 6. Potential discharge once patient able to ambulate on 6 L or less IMPRESSIONS: 1. Acute hypoxic respiratory failure secondary to COVID-19 Patient with significant hypoxia, groundglass opacity and positive COVID- 19 infection. Patient does not carry any underlying pulmonary diagnoses, but has not had an investigation either. Patient would be within 10 days of presentation, so remdesivir and Decadron would be indicated. Continue nasal cannula while awake, but may need BiPAP with sleeping. High clinical suspicion for undiagnosed obstructive sleep apnea, so BiPAP may be necessary. Patient continues to improve. If patient is able to tolerate ambulation on 6 L or less, likely okay to discharge from a pulmonary perspective with follow-up in our office in 4 weeks to complete work-up for RANDELL and to attempt discontinuation of supplemental oxygen. Given completion of remdesivir, LFTs are likely not necessary. Decadron can be completed p.o. if patient qualifies for discharge. We will challenge with diuretics and see if patient can be discharged later today. No other new recommendations on discharge 2. Acute kidney injury Resolved. Discontinue IV fluids as this can lead to worsening of hypoxic respiratory failure. Continue to monitor with daily labs. 3. Morbid obesity/anemia Complicates care, management, recovery and prognosis. Monitor for clinical signs of bleeding. We will need to watch patient closely for hyperglycemia Subjective Subjective Patient did well overall over the last 24 hours. Unfortunately, patient documented to require 9 L with ambulation yesterday, so discharge was held. Patient feels subjectively improved compared to yesterday. Objective Data Objective Data Vital Signs: Vital Signs Temp Pulse Resp BP Pulse Ox 36.6 C 46 L 20 H 140/80 H 98 01/06/21 03:00 01/06/21 07:33 01/06/21 07:33 01/06/21 03:00 01/06/21 07:33 Oxygen Flow Rate (L/min) [ 9 AMBULATING with Oxygen #2] Oxygen Flow Rate (L/min) [ 5 AMBULATING with Oxygen #1] Oxygen Flow Rate (L/min) [At 3 REST with Oxygen] Oxygen Flow Rate (L/min) [At 0 REST on Room Air] Oxygen Flow Rate (L/min) 3 Oxygen Delivery Method Nasal Cannula Weight: 112.1 kg Body Mass Index (BMI) 45.1 Intake & Output: Intake and Output for Last 24 Hours 01/04/21 01/05/21 01/06/21 23:59 23:59 23:59 Intake Total 969 / 969 630 / 870 360 / 360 Output Total 475 / 725 500 / 500 Balance 969 / 969 155 / 145 -140 / -140 Medical Nutrition Assessment Dietitian: Nutrition Therapy Diagnosis Start: 01/02/21 12:07 Freq: Status: Active Protocol: Document 01/02/21 12:07 (Rec: 01/02/21 12:07 [id number]) Nutrition Malnutrition Evidence of Malnutrition Exists Yes Malnutrition (severe): Acute Illness/Injury Evidenced By Suboptimal Energy Intake ( Severe),Weight Loss (Severe) Clinical Problem Acute Disease or Injury Related Malnutrition Etiology severe, acute malnutrition related to inadequate energy intake w/ increased nutrient needs d/t acute COVID-19 illness Signs/Symptoms as evidenced by pt reports of decreased appetite, estimated PO intake meeting <50% of estimated nutritional needs 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 Lab / Micro Data Result Diagrams: 01/03/21 06:28 01/06/21 08:02 Labs: Laboratory Results - last 24 hr 01/06/21 08:02: Sodium 139, Potassium 4.5, Chloride 107, Carbon Dioxide 28.0, Anion Gap 4 L, BUN 18, Creatinine 0.78, Estim Creat Clear Calc 68.25, Est GFR (MDRD) Af Amer 100, Est GFR (MDRD) Non-Af 83, BUN/Creatinine Ratio 23.0 H, Glucose 89, Calcium 8.5 Micro: Microbiology 12/30/20 21:45 Blood Culture (Wb) - Anticubital Right Blood Culture - Final No growth in 5 days. 12/30/20 20:53 Blood Culture (Wb) - Anticubital Left Blood Culture - Final No growth in 5 days. 12/31/20 08:45 Interface Orders Legionella Antigen - Final 12/31/20 08:45 Interface Orders Streptococcus pneumoniae Antigen (M - Final Streptococcus pneumonia Ag Physical Exam Const alert, oriented x3 and no apparent distress General Appearance: cooperative and well developed Nutritional Appearance: morbidly obese HEENT normocephalic, head/scalp atraumatic and moist oral mucous membranes Eyes PERRL and EOMs intact bilaterally Neck full ROM and no lymphadenopathy Chest inspection of chest normal Resp Effort and Inspection: Negative for able to speak in complete sentences, stridor, uses accessory muscles, tracheal deviation or tripod positioning Auscultation: diminished lung sounds; Negative for rales, rhonchi or wheezes Percussion: Negative for dullness Cardio regular rate, regular rhythm, S1 normal heart sound, S2 normal heart sound, no murmurs, no rub and no gallops GI normal to inspection, nondistended, normoactive bowel sounds no CVA tenderness Extremity no clubbing, cyanosis or edema Skin no rashes or lesions noted Neuro oriented x3, CN's II-XII intact bilaterally, moves all extremities and no focal motor deficits Psych cooperative and affect normal Charges/Coding Visit Charges Inpatient E&M: 80055 Subs Hosp L2
[2021-01-06] MEDS: Furosemide 20 MG/2 ML VIAL IV (10:40)
[2021-01-06] MEDS: dexAMETHasone 4 MG Tablet 6 MG PO (10:42)
[2021-01-06] MEDS: Enoxaparin 40 MG/0.4 ML Syringe SC (10:43)
[2021-01-06] MEDS: Famotidine 20 MG Tablet PO (10:43)
[2021-01-06] MEDS: 0.9% Saline Lock 10 ML Syringe IV (10:44)
--- NOTE | 2021-01-06 11:28 | PCM.DC ---
Discharge Instructions Diet Discharge Diet: 1600 Calorie Control Diet Activity Discharge Activity: Return to Normal Activity Dressing / Incision Call your doctor if you observe: Fever of 101 or Higher, Shortness of breath, Dizziness, Swelling in the ankles, Chest pain and Increased palpitations (irregular heartbeat) Follow Up Care Test Results: Test results from this visit will be discussed in further detail at your follow-up appointment, if applicable. Discharge Plan Admission Admit Date/Time: 12/31/20 02:39 Attending Provider: Emilio Fraser Primary Care Provider: Care Physician,No Primary Consulting Providers: Isra Montiel ; Chai Lewis ; Ama Bowman NP ; Cayetano Ro Instructions Patient Instructions: Coronavirus Disease 2019 (COVID-19): Overview, Coronavirus Disease 2019 (COVID-19): Caring for Yourself or Others Discharge Orders/Prescriptions Prescriptions: New dexamethasone 2 mg tablet 6 mg PO DAILY 2 Days Qty: 6 RF: 0 Referrals / Follow Up: Vic Mustafa MD [STAFF PHYSICIAN] - 01/11/21 11:20 am Disposition Disposition (needs filled in before D/C Order can be placed): Home, Self Care
--- NOTE | 2021-01-06 11:33 | DS.PCM_ITS ---
Providers Date of Admission: 12/31/20 Primary Care Physician: Yvette Primary Care Phys Consultations 12/31/20 02:43 Consult: Infectious Disease Routine Consulting Provider: Cayetano Ro Reason for Consult: Covid-19 EMERGENT Consult: No Notified: Yes Date Notified: 12/31/20 Time Notified: 07:50 Method of Notification: Answering Service Consult: Patient Care Associate / Pulmonary Medicine Routine Consulting Provider: Pulmonary Medicine kale Fulda Reason for Consult: Covid-19 EMERGENT Consult: No Notified: Yes Date Notified: 12/31/20 Time Notified: 02:43 Method of Notification: Text Reason For Visit: COVID PNA Diagnosis Discharge Diagnosis (1) Sepsis with acute hypoxic respiratory failure: Status: Acute Code(s): A41.9 - Sepsis, unspecified organism; R65.20 - Severe sepsis without septic shock; J96.01 - Acute respiratory failure with hypoxia (2) COVID: Status: Acute Code(s): U07.1 - COVID-19 (3) CAESAR (acute kidney injury): Status: Acute Code(s): N17.9 - Acute kidney failure, unspecified Medications at Discharge Home Medications dexamethasone 6 mg PO DAILY 2 Days #6 tab 01/06/21 Hospital Course Operations None Procedures None Summary of Care Provided Minutes Spent on Discharge: 45 Hospital Course: Per HPI: SWATHI LANGSTON, is a 50 F with a PMH as outlined who presents via the ED with a complaint of shortness of breath. Her symptoms started on December 21, with cough, body aches and low grade fever. She was short of breath last night. She was diagnosed wtih covid on . Her thought she was having shortness of breath, so he got a pulse ox which was in the 70s. EMS was called and she was placed on oxygen by the EMS. Patient hadnt yet received the COVID vaccine because she couldnt decide which one she wanted to take. Review of systems was otherwise negative. Virtals were temp of 96.8F, with VT of 102F, RR of 24 and she was saturating at 98% on 14L of oxygen. CBC showed wbc of 4.5, with Hb of 11.6, platelets of 257 and chemistry was significant for Cr of 1.4. CXR shwoed increased pulmonary parenchymal opacity,a dn focal bilateral patchy areas of pulmonary parenchymal infiltration consistent with pneumonia. CTA of the chest showed no PE and showed bilateral pulmonary parenchymal infiltrates consistent with covid pneumonia. She is being admitted to be managed for acute hypoxic respiratory failure due to COVID 19 pneumonia. Hospital Course: 1. Acute hypoxic respiratory failure and sepsis secondary to COVID-19 [id number] female who not received vaccine presented to the hospital with hypoxia. On chest x-ray she was found to have bilateral infiltrates and tested positive for COVID-19. She was started on Decadron and remdesivir initi ally she required air Vo and BiPAP to maintain her oxygen saturations. She is down to using BiPAP at night as well has only requiring 2 to 3 L nasal cannula to maintain her oxygen sats while awake and with ambulation. I recommend that she follow-up with her PCP next week, she does likely have undiagnosed obstructive sleep apnea secondary to her body habitus. She will also need to wear 3 L at night while she sleeps as well as with activity otherwise she can get away with 2 L while at rest. She did have an elevated D-dimer however CT of the chest was negative for PE. Symptoms started on December 21 therefore she will need to be in quarantine until January 10. I [facility] with her [facility] and she expressed understanding of the risk and benefits of going home and would like to go home today. Physical Exam Const alert, oriented x3 and no apparent distress General Appearance: cooperative HEENT normocephalic Eyes PERRL, EOMs intact bilaterally and conjunctivae normal Neck supple and no JVD Resp normal respiratory effort, no retractions, no use of accessory muscles and clear to auscultation bilaterally Auscultation: diminished lung sounds; Negative for crackles, rales, rhonchi or wheezes Cardio regular rate, regular rhythm, S1 normal heart sound, S2 normal heart sound and no murmurs GI soft to palpation, non-tender and non-distended; Negative for hepatosplenomegaly Extremity no clubbing, cyanosis or edema Skin no rashes or lesions noted Neuro no focal motor deficits and no sensory deficits noted Psych affect normal Appearance: appropriate Medical Records Data Medical Nutrition Assessment Dietitian: Nutrition Therapy Diagnosis Start: 01/02/21 12:07 Freq: Status: Active Protocol: Document 01/02/21 12:07 (Rec: 07/21/21 12:07 AG [id number]) Nutrition Malnutrition Evidence of Malnutrition Exists Yes Malnutrition (severe): Acute Illness/Injury Evidenced By Suboptimal Energy Intake ( Severe),Weight Loss (Severe) Clinical Problem Acute Disease or Injury Related Malnutrition Etiology severe, acute malnutrition related to inadequate energy intake w/ increased nutrient needs d/t acute COVID-19 illness Signs/Symptoms as evidenced by pt reports of decreased appetite, estimated PO intake meeting <50% of estimated nutritional needs 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 Weight / BMI Weight Weight: 247 lb 2.211 oz Body Mass Index (BMI) 45.1 ABG / Lab / Microbiology Data Result Diagrams: 01/03/21 06:28 01/06/21 08:02 Laboratory: Laboratory Results - last 24 hr 01/06/21 08:02: Sodium 139, Potassium 4.5, Chloride 107, Carbon Dioxide 28.0, Anion Gap 4 L, BUN 18, Creatinine 0.78, Estim Creat Clear Calc 68.25, Est GFR (MDRD) Af Amer 100, Est GFR (MDRD) Non-Af 83, BUN/Creatinine Ratio 23.0 H, Glucose 89, Calcium 8.5 Microbiology: Microbiology 12/30/20 21:45 Blood Culture (Wb) - Anticubital Right Blood Culture - Final No growth in 5 days. 12/30/20 20:53 Blood Culture (Wb) - Anticubital Left Blood Culture - Final No growth in 5 days. 12/31/20 08:45 Interface Orders Legionella Antigen - Final 12/31/20 08:45 Interface Orders Streptococcus pneumoniae Antigen (M - Final Streptococcus pneumonia Ag D/C Instructions Discharge Diet: 1600 Calorie Control Diet Call your doctor if you observe: Fever of 101 or Higher, Shortness of breath, Dizziness, Swelling in the ankles, Chest pain and Increased palpitations (irregular heartbeat) Meaningful Use Info Meaningful Use Diagnoses (Choose all that apply): None applicable Discharge Plan Admission Admit Date/Time: 12/31/20 02:39 Attending Provider: Emilio Fraser Primary Care Provider: Care Physician,No Primary Consulting Providers: Isra Montiel ; Chai Lewis ; Ama Bowman NP ; Cayetano Disla Instructions Patient Instructions: Coronavirus Disease 2019 (COVID-19): Overview, Coronavirus Disease 2019 (COVID-19): Caring for Yourself or Others Discharge Orders/Prescriptions Prescriptions: New dexamethasone 2 mg tablet 6 mg PO DAILY 2 Days Qty: 6 RF: 0 Referrals / Follow Up: Vic Mustafa MD [STAFF PHYSICIAN] - 01/11/21 11:20 am Disposition Disposition (needs filled in before D/C Order can be placed): Home, Self Care Charges/Coding Visit Charges Inpatient E&M: 23422 Disch Hosp
--- NOTE | 2021-01-06 16:25 | NURSING ---
Late entry: Updated Dr. Fraser that [facility] [place] pharmacy is closed. Patient lives in [facility]. Can you please Escribe Dexamethasone to [facility] in [place]?
--- NOTE | 2021-01-06 18:40 | NURSING ---
Late entry: this RN phoned patient's , Peña to inform him that Dr. Fraser would Escribe patient's dexamethasone to [facility] pharmacy in [place] per patient's request. voices understanding of same.
== END 2021-01-06 15:20 | disposition home or self-care (01) | DRG 177 ==
LOC: ED 20:48 → PCU 12-31 01:56
PROVIDERS: Internal Medicine Critical Care Medicine; Internal Medicine Infectious Disease; Admitting Provider Student in an Organized Health Care Education/Training Program; Emergency Provider Student in an Organized Health Care Education/Training Program; Visit Provider Family Medicine
DX: U07.1 COVID-19 (principal); A41.89 Other specified sepsis; J96.01 Acute respiratory failure with hypoxia; J12.82 Pneumonia due to coronavirus disease 2019; R65.20 Severe sepsis without septic shock; N17.9 Acute kidney failure, unspecified; Z68.42 Body mass index [BMI] 45.0-49.9, adult; E66.01 Morbid (severe) obesity due to excess calories; G47.33 Obstructive sleep apnea (adult) (pediatric)
CPT/HCPCS: 36415; 71045; 71275; 80048; 80053; 82550; 83605; 83615; 83735; 83880; 84075; 84100; 85025; 85027; 85379; 85610; 87040; 87449; 93005; 94002; 94003; 94640; 94660; 94760; 97110; 97116; 97162; 97530; 99251; 99284; J7030; J7050; Q9967; A4216; G0463; J1940

== ENCOUNTER → 2022-06-11 | Outpatient (CLI) | payer OTHER, SELFPAY ==
[2022-06-11] MEDS: Methacholine Chloride 18 ml neb kit INHALATION (07:08)
--- NOTE | 2022-06-13 08:43 | BRONCHALL ---
Bronchoprovocation Challenge Bronchoprovocation Challenge Bronchoprovocation Challenge: INTRODUCTION: The patient is a 51-year-old female that presents for a bronchoprovocation challenge secondary to a diagnosis of chronic cough. The respiratory therapist reported good patient effort and reproducible results. INTERPRETATION: Initial spirometry did not show any large airways obstructive ventilatory defect with preserved airflows throughout. The patient was then given progressively increasing doses of methacholine in a standardized fashion. At no point during testing did the patient's FEV1 drop to the threshold criteria to be considered a positive test. IMPRESSION: Negative methacholine inhalation challenge.
== END | disposition home or self-care (01) ==
PROVIDERS: PCP Internal Medicine
DX: R05.3 Chronic cough (principal)
CPT/HCPCS: 94070; 95070